=== PATIENT | female | born 1960 | race Caucasian/White ===

== ENCOUNTER 2023-03-23 12:02 | Emergency (ER) | payer BC, SELFPAY ==
[2023-03-23] VITALS (17 sets, daily range): BP systolic 156–204; BP diastolic 75–99; PULSE 68–80; RESP 12–28; TEMP 36.2; O2SAT 95–100
--- NOTE | ~2023-03-23 | XR_ITS ---
EXAMINATION: XR chest 2V DATE: 03/23/2023 13:16 INDICATION: Hypertension TECHNIQUE: PA and lateral views of the chest are obtained. COMPARISON: 12/14/2017 FINDINGS: The lungs are free of acute opacities. No pleural effusion or pneumothorax. The cardiomedia stinal silhouette is normal. There is moderate thoracic spondylosis. Surgical clips in the right uppe r quadrant are likely from prior cholecystectomy. IMPRESSION: 1. No acute cardiopulmonary abnormality. Reviewed, dictated and finalized at location B.
--- NOTE | 2023-03-23 12:10 | ECG_ITS ---
Measurements Intervals [place] Rate: 67 P: 5 AK: 144 QRS: 19 QRSD: 86 T: 29 QT: 399 QTc: 423 Interpretive Statements SINUS RHYTHM WITHIN NORMAL LIMITS NO PREVIOUS ECG AVAILABLE FOR COMPARISON Electronically Signed On 03-23-2023 17:06:13 CDT by Luan Reeves M.D.
[2023-03-23 12:47] LABS: Basophils Percent Auto 0.6 % (0.2-1.2); Eosinophils Absolute Auto 0.8 K/mm3 (0-0.3); Eosinophils Percent Auto 12.7 % (0-4.4); Hematocrit 36.7 % (37.0-47.0); Hemoglobin 12.3 g/dL (12.0-15.0); Immature Granulocyte Absolute 0.02 K/mm3 (0.00-0.031); Immature Granulocyte Percent A 0.3 % (0-0.5); Lymphocytes Absolute Auto 2.23 K/mm3 (0.9-3.2); Mean Corpuscular HGB Conc 33.5 g/dl (32-36); Mean Corpuscular Hemoglobin 29.5 pg (26-34); Mean Platelet Volume 9.5 fl (7.4-10.4); Monocytes Absolute Auto 0.5 K/mm3 (0.1-0.6); Neutrophils Absolute Auto 2.8 K/mm3 (1.3-6.7); Neutrophils Percent Auto 43.4 % (45.5-73.1); Platelet Count Result 258 k/mm3 (150-375); Red Blood Count 4.17 M/mm3 (4.2-5.4); Red Cell Distribution Width 12.4 % (11.5-14.5); White Blood Count 6.4 K/mm3 (4.5-10.0)
[2023-03-23 12:57] LABS: Alanine Aminotransferase 23 U/L (6-35); Albumin Level 4.6 g/dL (3.5-5.1); Alkaline Phosphatase 108 U/L (38-126); Anion Gap 10 mmol/L (8-16); Aspartate Amino Transferase 30 U/L (14-36); Bilirubin,Total 0.7 mg/dL (0.2-1.3); Blood Urea Nitrogen 15 mg/dL (7-17); Calcium 9.5 mg/dL (8.4-10.2); Carbon Dioxide 22 mmol/L (22-30); Chloride 104 mmol/L (98-107); Estimated CRCL calculation 83 ml/min; Estimated Glomerular Filt Rate > 60; Glucose 104 mg/dL (65-110); Lipase 73 U/L (23-300); Potassium 3.9 mmol/L (3.4-5.0); Sodium 136 mmol/L (137-145)
[2023-03-23 13:08] LABS: Troponin I < 0.012 ng/mL (0.000-0.034)
[2023-03-23 14:12] LABS: INR 0.9; Prothrombin Time 12.9 Seconds (11.1-14.7)
[2023-03-23 14:13] LABS: Partial Thromboplastin Time 30.3 SECONDS (22.3-36.8)
--- NOTE | 2023-03-23 14:47 | PC.NURSE ---
pt up to desk asking if she can leave. pt made aware of dept status. pt anxious. made aware that even though labs were drawn that she is waiting to see an edp.
--- NOTE | 2023-03-23 15:49 | ED.GENADULT ---
[facility] - General Adult General Chief complaint: Recheck/Abnormal Lab/Rx Stated complaint: high blood pressure Time Seen by Provider: 03/23/23 15:22 Source: patient Mode of arrival: ambulatory Limitations: no limitations History of Present Illness [facility] narrative: This is a 62-year-old female who presents to the ED with chief complaint of high blood pressure and chest pain beginning just prior prior to arrival. At the time I am able to see her she states that all of her symptoms have resolved. She states earlier today she had checked her blood pressure at [facility] because she was having a little bit of headache and saw that it was in the 200s over 80s. She states she then started to have a little bit of tingling in her hands and around her lips. She also reports some chest pain that was centrally located that radiated to the left. Denies any exertional component with the chest pain. Denies shortness of breath, LOC, vomiting. Again she states that it is completely resolved by the time that I talk to her. Denies vision changes, any current numbness or weakness. Denies leg swelling. Related Data Allergies Allergy/AdvReac Type Severity Reaction Status Date / Time No Known Allergies Allergy Verified 12/14/17 11:15 Review of Systems Review of Systems: All systems as dictated in [facility] Family History Family History (Updated 01/07/11 @ 14:32 by DOCTOR UNKNOWN) Other Family history of Parkinson's disease Hypertension Social History Social History Alcohol intake: current Exam Narrative: GENERAL: Well-appearing, well-nourished, and in no acute distress. HEAD: Normocephalic, atraumatic. EYES: PERRLA and EOMI. ENT: Nares clear, no rhinorrhea or epistaxis. Mucous membranes moist. Oropharynx without tonsillar hypertrophy exudate or other lesions. NECK: Supple. No adenopathy or masses. CHEST: No respiratory distress. Clear to auscultation. No wheezes rales or rhonchi HEART: Regular rate and rhythm. No murmur heard. Normal peripheral pulses. ABDOMEN: Soft, nontender, nondistended, normal active bowel sounds. MSK: Normal range of motion. No edema. SKIN: Warm, dry, no rash. NEURO: Alert and oriented x3. No focal deficits. PSYCH: Normal mood and affect. Course Vital Signs Vital signs: Vital Signs Temperature 97.2 F L 03/23/23 12:16 Pulse Rate 77 03/23/23 12:16 Respiratory Rate 18 03/23/23 12:16 Blood Pressure 156/86 H 03/23/23 12:16 Pulse Oximetry 99 03/23/23 12:16 Oxygen Delivery Room Air 03/23/23 12:16 Temperature 97.2 F L 03/23/23 12:16 Pulse Rate 75 03/23/23 17:16 Respiratory Rate 14 03/23/23 17:16 Blood Pressure 165/77 H 03/23/23 17:16 Pulse Oximetry 98 03/23/23 17:16 Oxygen Delivery Room Air 03/23/23 12:16 Medical Decision Making MDM Narrative Medical decision making narrative: This is a 62-year-old female who presents to the ED with chief complaint of hypertension, headache. She also had some chest pain but all of the symptoms have seemed to resolved. Vitals show elevated blood pressure but nonemergent hypertension. Otherwise vitals are intact. Exam is benign. ECG shows normal sinus rhythm with no acute ischemic findings. Serial troponins are negative. Lab work is grossly unremarkable. Chest x-ray is negative. Her neurologic exam is fully intact with no vision changes. No evidence of any emergent hypertension or end organ damage. She is comfortable going home and taking Tylenol for her headache. Presentation consistent with asymptomatic hypertension at this time. Heart score 3. I discussed with her that she should follow-up with her doctor regarding her elevated blood pressures. Strict return precautions were given. Pt will be discharged in stable condition. Return precautions given and supportive measures discussed. Pt is understanding and agreeable with plan for discharge and follow-up with PCP. Vital Signs Vital Signs: Vital Si
[2023-03-23 15:59] LABS: Troponin I < 0.012 ng/mL (0.000-0.034)
--- NOTE | 2023-03-23 16:33 | PC.NURSE ---
taken to CT at this time.
== END 2023-03-23 17:38 | disposition home or self-care (01) ==
PROVIDERS: Emergency Medicine; Emergency Provider Physician Assistant; PCP Internal Medicine
DX: I10 Essential (primary) hypertension (principal)
CPT/HCPCS: 36415; 71046; 80053; 83690; 84484; 85025; 85610; 85730; 93005; 99284

== ENCOUNTER 2024-12-27 19:15 | Emergency (ER) | payer BC, SELFPAY ==
--- NOTE | ~2024-12-27 | US_ITS ---
EXAMINATION: US pelvic complete DATE: 12/27/2024 23:58 INDICATION: right lower abd pain, r/o torsion TECHNIQUE: Multiple transabdominal sonographic images of the pelvis were obtained. COMPARISON: CT abdomen pelvis, same date. FINDINGS: Uterus: 9.5 x 3.5 x 5.5 cm. Endometrial complex measures 8 mm. Right Ovary: 4.6 x 2.0 x 2.7 cm. Vascular flow is present. No adnexal mass. Left Ovary: 3.1 x 2.6 x 2.7 cm. Vascular flow is present. No adnexal mass. There is no free fluid in the pelvis. IMPRESSION: Endometrial thickening to 8 mm. Recommend referral for endometrial sampling. No sonographic findings to suggest ovarian torsion. Reviewed, dictated and finalized at location K.
--- NOTE | ~2024-12-27 | CT_ITS ---
EXAMINATION: CT abdomen pelvis w con DATE: 12/27/2024 22:45 INDICATION: RLQ abd pain TECHNIQUE: Computed tomography (CT) of the abdomen and pelvis was performed with 100 mL Omnipaque-350 intravenous contrast. Automated exposure control and iterative reconstruction technique were employe d. The dose-length product was 714.24 mGy-cm. COMPARISON: 08/14/2011. FINDINGS: Lower thorax: Unremarkable Liver: Diffusely low-density parenchyma. Biliary/Gallbladder: Gallbladder is absent. No bile duct dilation. Pancreas: No mass or duct dilation. Spleen: Normal. Adrenals:No mass. Kidneys: No suspicious mass, obstructing stone, or hydronephrosis. Tiny left midpole AML. Subcentimet er lateral hypodensities, too small to characterize but most likely represent cysts. GI tract: Mild distal esophageal and gastric wall edema. Mild wall edema in the sigmoid. No small or large bowel dilation. Normal appendix. Mesentery/Peritoneum: No ascites, mass, or free air. Retroperitoneum: No mass. Pelvis: Mild bladder wall thickening in a partially distended urinary bladder. Normal uterus and bila teral ovaries. Prominent left pelvic veins, with small enhancing veins extending up the left ureter t o the renal pelvis, giving the appearance of urothelial enhancement. Soft Tissues: Soft tissues and body wall unremarkable. Bones: No acute osseous finding. IMPRESSION: Esophagitis/gastritis. Hepatic steatosis. Mild sigmoid wall edema, may reflect a component of colitis. Cystitis versus bladder wall thickening from incomplete distention. Correlate with urinalysis. Prominent left pelvic veins, as can be seen with pelvic congestion. Correlate clinically for persiste nt dull pelvic pain lasting > 6 months, dysmenorrhea, dyspareunia, postcoital ache, and urinary sympt oms. Reviewed, dictated and finalized at location K. IMPRESSION: Esophagitis/gastritis. Hepatic steatosis. Mild sigmoid wall edema, may reflect a component of colitis. Cystitis versus bladder wall thickening from incomplete distention. Correlate w ith urinalysis. Prominent left pelvic veins, as can be seen with pelvic congestion. Correlate c linically for persistent dull pelvic pain lasting > 6 months, dysmenorrhea, dys pareunia, postcoital ache, and urinary symptoms.
--- OUTSIDE RECORDS SUMMARY | 2024-12-27 19:17 | XMS_ITS | Patient Health Record ---
Author Organization [facility] Address [address] [place], [place] [id number] Care Team Providers Care Butcher Or Smallgoods Maker Name Role Phone ROSY SALES Unavailable [phone] Jinny Beasley Unavailable Unavailable Allergies No Known Allergies Reason For Referral No Information Medications Medication SIG (Take, Route, Frequency, Duration) Notes Start Date End Date Status Medrol Dosepak ORAL Medrol DosepakOr iginal MedicationMedrol Dosepak *Reorder from [facility] for eRx and Interaction Alerts* 12/07/2020 Active Procedures Procedure Date Ordered Date Performed Result Body Sit e PHYSICAL THERAPY 02/01/2024 02/02/2024 SEE PHYSICAL THERAP Y REPORT Encounters Encounter Location Date Provider Diagnosis [facility] [address] [place], [place] [id number] 03/24/2024 ROSY SALES 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 Suggest Graston technique Plan Of Treatment No Information Insurance Providers Payer Name Payer Address Payer Phone Subscriber Number Group Number Insured Name Patient Relationship to Insured Coverage Start Date Coverage End Date [facility] ([facility]) ATTN CLAIMS [address] [place] [address] [id number] STACEY BETHEA Self - patient is the insured
--- OUTSIDE RECORDS SUMMARY | 2024-12-27 19:17 | XMS_ITS | Encounter Summary ---
Author Organization [facility] Address [address] [place] [address] Care Team Providers Care Distributor Operator Name Role Phone Yanet Westfall MD Unavailable [phone] Alma Francisco MD Unavailable [phone] Jacquelin Holden MD Unavailable [phone] Horace Zapien MD Unavailable [phone] Jinny Sam MD Primary Care Provider [phone] Encounter Details Date Type Department Care Team (Latest Contact Info) Description 11/27/2024 Results Follow-Up [facility] Primary Care [address] [place] [phone] Jinny Sam MD [address] [place] [phone] CBC with auto differential, Comprehensive metabolic panel, Lipid panel, Additional followed-up results: 5 Social History Tobacco Use Types Packs/Day Years Used Date Smoking Tobacco: Never Smokeless Tobacco: Never Alcohol Use Standard Drinks/Week Comments Yes 0 (1 standard drink = 0.6 oz pur e alcohol) socially AUDIT-C Answer Date Recorded Q1: How often do you have a drink containing alc ohol? Monthly or less 08/12/2024 Q2: How many drinks containi ng alcohol do you have on a typical day when you are drinking? 1 or 2 08/12/2024 Q3: How often do you have si x or more drinks on one occasion? Never 08/12/2024 PHQ-2 Answer Date Recorded PHQ-2 Total Score (If total score is 3 or more points, staff should administer the PHQ-9) 0 06/08/2024 Personal Safety Answer Date Recorded Have you ever been in or are you currently in a harmful physical or emotional relationship or is someone making you feel afraid or unsafe? 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 documented in this encounter Plan of Treatment Not on file documented as of this encounter Visit Diagnoses Not on filedocumented in this encounter Care Teams Distributor Operator Relationship Specialty Start Date End Date Jinny Sam MD [address] [place] [phone] PCP - General Internal Medicine 11/16/19 Yanet Westfall MD Consulting Physician Pulmonary Disease 04/18/19 Alma Francisco MD [address] [facility] [address] [place] [address] Referring Physician Cardiology 04/18/19 Jacquelin Holden MD [facility] [address] [place] [id number] Surgeon Surgical Oncology 04/18/19 Horace Zapien MD [address] [place] [address] Referring Physician Dermatology 04/18/19 documented as of this encounter
--- OUTSIDE RECORDS SUMMARY | 2024-12-27 19:17 | XMS_ITS | Clinical Summary ---
Author Organization [facility] Address [address] [place] [id number] Care Team Providers Care Facing End Trimmer Name Role Phone Yanet Westfall MD Unavailable [phone] Alma Francisco MD Unavailable [phone] Jacquelin Holden MD Unavailable [phone] Horace Zapien MD Unavailable [phone] Jinny Sam MD Primary Care Provider [phone] Allergies Active Allergy Reactions Criticality Noted Date Comments Cat Dander Other (See comments) Low 06/03/2023 House Dust Other (See comments) Low 06/03/2023 Mold Other (See comments) Low 06/03/2023 Ragweed Pollen Eye irritation,Hives,Itching,Rash,Redness, Sneezing,Swelling Medium Medications multivitamin tablet Take 1 tablet by mouth daily 12/03/19 19 Active hydroCHLOROthi azide (HYDRODIURIL) 25 mg tablet 04/09/20 23 Active benzonatate (TESSALON) 200 mg capsuleIndicat ions:Acute lower respiratory infection Take 1 capsule (200 mg total) by mouth 3 (three) times a day as needed for cough keep tessalon out of reach of children, especially children under the age of 10, due to possible serious risk such as if ingested by children under the age of 10. 30 capsule 07/24/20 24 Active SEMAGLUTIDE SUBQ Inject under the skin Active mometasone (ELOCON) 0.1 % cream Apply topically daily Apply topically daily to hand 45 g 1 09/16/19 25 Active irbesartan (AVAPRO) 150 mg tablet TAKE 2 TABLETS BY MOUTH DAILY 180 tablet 1 09/21/19 25 Active buPROPion XL (WELLBUTRIN XL) 150 mg 24 hr tabletIndicati ons:Anxiety with depression TAKE 1 TABLET(150 MG) BY MOUTH EVERY MORNING 30 tablet 3 12/09/19 25 Active metFORMIN (GLUCOPHAGE) 500 mg tabletIndicati ons:Abnormal glucose,Class 1 obesity due to excess calories with serious comorbidity and body mass index (BMI) of 31.0 to 31.9 in adult Take 1 tablet (500 mg total) by mouth 2 (two) times a day with meals 180 tablet 1 12/13/19 25 Active rosuvastatin (CRESTOR) 5 mg tablet TAKE 1 TABLET(5 MG) BY MOUTH DAILY 90 tablet 3 10/29/19 24 025 Discontinued(No longer taking - Do not display on AVS) metFORMIN (GLUCOPHAGE) 500 mg tabletIndicati ons:Abnormal glucose,Class 1 obesity due to excess calories with serious comorbidity and body mass index (BMI) of 31.0 to 31.9 in adult TAKE 1 TABLET(500 MG) BY MOUTH TWICE DAILY WITH MEALS 180 tablet 1 03/25/20 24 025 Discontinued(Re order) buPROPion XL (WELLBUTRIN XL) 150 mg 24 hr tabletIndicati ons:Smoking Cessation Take 1 tablet (150 mg total) by mouth every morning 30 tablet 1 09/16/19 25 025 Discontinued Active Problems Problem Noted Date Diagnosed Date Myalgia 12/07/2024 Assessment & Plan (12/07/2024 4:27 PM CDT): New and worsening Prob from statin use Change rosuvastatin to atorvastatin but need to make sure the LFTs return to normal Stop rosuvastatin see if muscle aches resolve Transaminitis 12/07/2024 Assessment & Plan (12/07/2024 4:41 PM CDT): New problem Doubt from rosuvastatin has been on this for quite a long time Recent stomach discomfort ff chicken salad sandwich and had immed pain, then had labs morning after and lfts were up Should resolve if viral of food poisoning related Limit etoh Last inj of semiglutide was october 2024 LFTs in 4 wks Bladder prolapse, female, acquired 12/07/2024 Assessment & Plan (12/07/2024 4:58 PM CDT): Seen by clinical review specialist at [place] told she has grade 1 prolapse of the bladder. She is struggling with urinary symptoms. Patient wanting to see a urogynecologist. Refer to Dr. Montoya Screening for colon cancer 07/13/2024 Anxiety with depression 06/08/2024 Overview (12/07/2024): Wellbutrin therapy: To cut down food noise and cravings and reduce irritability/anxiety Assessment & Plan (12/07/2024 4:29 PM CDT): Wellbutrin therapy: To cut down food noise and cravings and reduce irritability/anxiety Assessment & Plan (06/08/2024 4:02 PM CDT): Restart wellbutrin therapy, start at 150 mg and in 1 month call to increase to 300 mg Knee pain, bilateral 10/23/2023 Assessment & Plan (03/11/2024 2:58 PM CDT): Ongoing. Limits activity options. She is encouraged to participate in exercises that are low impact to reduce knee pain. 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 Causes pain in bilateral heels. Use supportive shoes when active. Participate in low-impact activities. Assessment & Plan (10/23/2023 9:30 AM CDT): Rebecca heel - surgically corrected, 06/12/2023, Dr Salima Stein heel - not surgically corrected, affects gait and in pain Affecting gait, knees and back Treatment-emergent central sleep apnea Assessment & Plan (03/10/2024 4:00 PM CDT): Due to continued symptoms, the patient will continue with auto SV BiPAP therapy. I have ordered a mask and filters. [facility] Assessment & Plan (04/07/2023 1:30 PM CDT): The patient is reluctant to use the [employer] auto SV BiPAP unit because she has seen dust particles in the humidifier. She has not received a replacement unit and she did register with [employer] in 2020. Her current unit is 4 years old. I did ask her to contact her private insurance company to see if they would be willing to pay for a new [employer] auto SV BiPAP unit. I also requested that she contact [employer] again and see when she might receive the new [employer] auto SV BiPAP unit. She will follow-up with me in 3 months. Weight loss counseling, encounter for 01/15/2023 Overview (12/07/2024): 12/2022 wt 200#, started wegovy 01/14/2023 wt 192#, on wevogy 0.25 mg weekly, increase to 0.5 mg K Gloria rx semiglutide compound in 07/2024 Assessment & Plan (01/15/2023 11:48 AM CDT): Doing well on wegovy Cont inc dose of rx wegovy monthly Cont to improve on diet and lifestyle changes Make good healthy food choices Start to exercise regularly Rosacea 01/09/2022 Assessment & Plan (01/09/2022 3:35 PM CDT): Cheeks and around eyes Trial metrogel and cerave moisturizing cream for rosacea Has appt March [address] Zapien Annual physical exam 06/13/2020 Assessment & Plan (12/07/2024 4:20 PM CDT): covid bivalent booster due Colonoscopy due, schedule Reviewed previous labs and diagnostic test results. Chronic medical problems evaluated and management plans discussed with the patient. Prescription medications, supplements, vitamins and immunizations reviewed. Wear seatbelts. Use sunscreen. Discussed healthy diet and disease prevention. Recommend moving towards a plant based diet. Discussed importance of scheduling recommended screening tests. Discussed importance of regular physical examinations for health maintenance. Assessment & Plan (10/23/2023 8:58 AM CDT): covid bivalent booster due Colonoscopy due, schedule Reviewed previous labs and diagnostic test results. Chronic medical problems evaluated and management plans discussed with the patient. Prescription medications, supplements, vitamins and immunizations reviewed. Wear seatbelts. Use sunscreen. Discussed healthy diet and disease prevention. Recommend moving towards a plant based diet. Discussed importance of scheduling recommended screening tests. Discussed importance of regular physical examinations for health maintenance. Assessment & Plan (09/30/2022 7:54 AM SOCIAL MEDIA DEVELOPER): covid bivalent booster due Colonoscopy due, schedule Reviewed previous labs and diagnostic test results. Chronic medical problems evaluated and management plans discussed with the patient. Prescription medications, supplements, vitamins and immunizations reviewed. Wear seatbelts. Use sunscreen. Discussed healthy diet and disease prevention. Recommend moving towards a plant based diet. Discussed importance of scheduling recommended screening tests. Discussed importance of regular physical examinations for health maintenance. Discussed importance of a living will, advanced directives and establishing or updating healthcare power of state's attorney document and providing our office with a copy. Assessment & Plan (07/10/2021 1:09 PM SOCIAL MEDIA DEVELOPER): Reviewed previous labs and diagnostic test results. Chronic medical problems evaluated and management plans discussed with the patient. Prescription medications, supplements, vitamins and immunizations reviewed. Wear seatbelts. Use sunscreen. Discussed healthy diet and disease prevention. Recommend moving towards a plant based diet. Discussed importance of scheduling recommended screening tests. Discussed importance of regular physical examinations for health maintenance. Assessment & Plan (06/13/2020 3:04 PM SOCIAL MEDIA DEVELOPER): Wear sunscreen with SPF over 50 while outdoors. Wear sun protective head wear and clothing if planning to stay outdoors exposed to the direct sunlight for extended hours. Wear seatbelts while in a vehicle. Do not TEXT and DRIVE Do not DRINK and DRIVE. Drink responsibly Follow a heart healthy diet and lifestyle. Consume 5-7 servings of fruits and vegetables a day.. Such as the Mediterranean Diet. Maintain/attain normal body weight. Exercise regularly, minimum 20 mins 3 days a week to reduce cardiovascular healthy. Maintain good sleep schedule and sleep habits I recommend that all patients follow a diet that is high in fruits and vegetables and low in processed foods such as sugar and foods that are made with white flour. I recommend using beneficial fats such as olive oil, nuts, seeds and berries and avoiding saturated animal fats. Please stay physically active to the extent that you are physically able to. Test results: if you have not received communication about test results within 7 days of the test being performed, please contact the office. I strongly encourage [employer] sign ups. It can facilitate communication flow. Please contact the office for instructions on signing up. Consider getting Shingrix (shingles vaccine). This is a 2-shot series with each injection given 2-6 months apart. You can obtain the vaccine at most major pharmacies without a prescription Class 1 obesity due to exces s calories with serious comorbidity and body mass index (BMI) of 30.0 to 30.9 in adult 06/13/2020 Overview (12/07/2024): 203 # 04/2024 191# 07/2024 187# 08/2023 197# 04. Assessment & Plan (12/07/2024 4:16 PM CDT): Improving Cont to work on wt loss Exercise once is able to for wt loss Assessment & Plan (06/08/2024 3:55 PM CDT): Improving Cont to work on wt loss Exercise once is able to for wt loss Assessment & Plan (03/11/2024 2:56 PM CDT): Work on attempts to lose weight about 1 lb a week. Join a weight loss program if necessary. Try to reach for BMI under 30. Exercise regularly, Limit carbs and sugars. Control portion intake. Consume 6-8 8oz glasses of water daily. We discussed medication options at length. Her insurance does not cover GLP 1 injectables. She does not have interest in phentermine due to high blood pressure. We will start Wellbutrin to help reduce food cravings and support activity efforts. Assessment & Plan (10/23/2023 9:15 AM CDT): Work on wt loss Exercise once is able to for wt loss Assessment & Plan (06/03/2023 5:02 PM CDT): Work on wt loss Exercise once is able to for wt loss Assessment & Plan (04/07/2023 4:07 PM CDT): Work on wt loss Walk regularly, exercise with weights Try to lose about 20 lbs Assessment & Plan (01/15/2023 11:50 AM CDT): Consider wt loss jose to assist with wt loss Exercise regularly Increase activity to burn calories Assessment & Plan (09/30/2022 3:34 PM SOCIAL MEDIA DEVELOPER): Work on attempts to lose weight about 1 lb a week. Join a wt loss program if necessary. Try to reach for BMI under 30. Exercise regularly, Limit carbs and sugars. Control portion intake. Consume 6-8 8oz glasses of water daily. BMI Follow-up includes: nutrition counseling, exercise counseling and education provided. Assessment & Plan (05/27/2022 8:32 AM CDT): Agree with exercise regimen and plans to tr a wt loss program thru [employer] exercise Eat smaller portions Did not tolerate metformin, diarrhea but did not take too long Assessment & Plan (01/09/2022 3:29 PM CDT): Goal wt 166 lbs Try to get to 184 lbs first to get BMI under 30 Start exercising regularly Start metformin due to pre DM and to aid with wt loss Assessment & Plan (07/10/2021 1:11 PM SOCIAL MEDIA DEVELOPER): Work on wt loss Exercise 4-5 d a week for 45-60 mins a day to lose weight, burn calories No sugar diet Assessment & Plan (02/13/2021 3:56 PM CDT): Patient to call insurance plan and inquire if [employer] or [employer] are covered for weight loss for BMI 31.14, HTN, Pre DM, central sleep apnea Assessment & Plan (06/13/2020 3:36 PM SOCIAL MEDIA DEVELOPER): Work on wt loss Exercise regularly Lose about 40 lbs LPRD (laryngopharyngeal reflux disease) 06/13/20 20 Overview (06/13/2020): Dr Maharaj ENT On rx prilosec 40 mg bid Assessment & Plan (02/13/2021 3:44 PM CDT): No longer on prilosec 40mg 2x a day, cont under Carol Ann Takes tums prn since episodes are sporadic Avoid menthol cough gtts Avoid foods that can cause more reflux Assessment & Plan (06/13/2020 3:30 PM SOCIAL MEDIA DEVELOPER): Cont on prilosec 40mg 2x a day, cont under Carol Ann See if it reduces her cough Avoid menthol cough gtts Avoid foods that can cause more reflux Abnormal glucose 06/13/2020 Overview (12/07/2024): Taking metformin therapy 02/2022 - 5.8% 05/2022 - 5.7% 09/2022 - 5.8% 03/2023 - 5.7% 05/2024 - 6.0%, cannot exercise 11/2024 - 5.5%, some exercising, cut portions by 50% Assessment & Plan (12/07/2024 4:27 PM CDT): 05/2024 - 6.0%, could not exercise 11/2024 - 5.5%, some exercising, cut portions by 50% Cont to avoid sugar in diet Try to exercise more Cont to cut down on food portions Avoid etoh Assessment & Plan (06/08/2024 3:59 PM CDT): Cont rx metformin therapy 500 mg once daily to improve sugar metabolism, prevent DM Has to work on diet and exercise regimen Do water exercises Last A1c was 5.7, now up to 6% Assessment & Plan (10/23/2023 9:14 AM CDT): Is taking metformin therapy Has to work on diet and exercise regimen Do water exercises Last A1c was 5.7 Assessment & Plan (09/30/2022 3:51 PM SOCIAL MEDIA DEVELOPER): Better, tolerating metformin Cont same one nightly of metformin Ff low sugar diet Patient requested natural products that might help: Chromium piconolate supplement lowers BS Bittermelon lowers blood sugar (tea version) Lecithin (b type vitamin) lowers cholesterol Cont statin low dose Assessment & Plan (05/27/2022 8:37 AM CDT): Did not tolerate metformin, diarrhea but took intermittently and dd not take for long to see if SE would wear off 02/2022 - 5.8% 05/2022 - 5.7% Re try, once daily for 3 - 4 wks, do not interrupt use, if diarrhea persists over 4 wks continuously then stop, if tolerates, cont to take once daily with main meal Assessment & Plan (01/09/2022 3:20 PM CDT): a1c 5.8 At risk for DM Start metformin 500 mg bid with breakfast and dinner Ff diabetic diet Assessment & Plan (07/10/2021 1:12 PM SOCIAL MEDIA DEVELOPER): Remains at risk for DM BMI over 30 Work on wt loss Exercise for wt loss FBS 104, a1 5.7 Assessment & Plan (02/13/2021 3:57 PM CDT): At risk for DM Consider wt loss meds williams salma and or karlo Follow low carbohydrate high-protein diet. Avoid eating sugars. Patient should read labels and make sure there are no ingredients that contain added sugar, or fructose, sucrose or anything ends in OSE. Exercise regularly, limit food portions. Follow proper serving sizes. Work on add'l weight loss. Will Monitor a1c on a 3-6mos basis. Assessment & Plan (06/13/2020 6:16 PM SOCIAL MEDIA DEVELOPER): At risk for DM a1c today is normal at 5.5. Patient advised to decrease her carbohydrate intake and follow a no sugar diet. Hyperlipidemia 11/12/2018 Assessment & Plan (12/07/2024 4:41 PM CDT): Worsening lately Was Improving initially on rosuvastatin and suddenly chol is high again LFTs are up, hold rosuvastatin, until LFT normal Will call in 4 wks once LFTs back to decide if ok to try atorvastatin instead, she may tolerate Low chol diet Assessment & Plan (06/08/2024 4:10 PM CDT): Improving on rosuvastatin Cont statin low dose Low chol diet Assessment & Plan (10/23/2023 8:59 AM CDT): Improving Cont statin low dose Low chol diet Assessment & Plan (04/07/2023 4:04 PM CDT): Improving Cont statin low dose Low chol diet Assessment & Plan (09/30/2022 3:52 PM SOCIAL MEDIA DEVELOPER): Improving Cont statin low dose Low chol diet Assessment & Plan (01/09/2022 3:21 PM CDT): Cont low chol diet Cont statin therapy Assessment & Plan (07/10/2021 1:13 PM SOCIAL MEDIA DEVELOPER): Numbers could be better, LDL goal under 100 Improve diet and lifestyle Assessment & Plan (02/13/2021 3:42 PM CDT): Follow step 1 low cholesterol diet. Report if having problems with daily nausea or extreme muscle aches and weaknesses throughout the body if you have been prescribed a statin medication. Monitor lipid levels on a regular basis as discussed and planned. Recommend to continue with current medication. Controlled on current regimen. Assessment & Plan (06/13/2020 3:44 PM SOCIAL MEDIA DEVELOPER): Follow low chol diet Cont crestor therapy Stable The 10-year ASCVD risk score (Jade PAULINO Jr., et al., 2013) is: 4% Values used to calculate the score: Age: 59 years Sex: Female Is Non- : No Diabetic: No Tobacco smoker: No Systolic Blood Pressure: 128 mmHg Is BP treated: Yes HDL Cholesterol: 49 mg/dL Total Cholesterol: 182 mg/dL Assessment & Plan (04/18/2019 2:56 PM CDT): Lipids, cpk soon Patient is taking the medications as prescribed and is tolerating well. Patient is following a low-cholesterol heart healthy diet. Tries to exercise on a regular basis. Denies myalgias or nausea. Does get routine blood work done. Liver panels have been in normal range. Essential hypertension 05/13/2017 Overview (07/10/2021): ECHO 07/01/2021, normal Dr Francisco The left ventricular systolic function is normal. Estimated left ventricular ejection fraction is 65-70%. Left ventricular diastolic function is normal. Wall motion appears normal in all segments. No significant valvular abnormality. Assessment & Plan (12/07/2024 4:21 PM CDT): Stable Cont same arb dose and hctz Cont wt loss attempts Exercise regularly Assessment & Plan (06/08/2024 3:54 PM CDT): Stable Cont same arb dose and hctz Cont wt loss attempts Exercise regularly Assessment & Plan (10/23/2023 8:59 AM CDT): Stable Cont same arb dose and hctz Cont wt loss attempts Exercise regularly Assessment & Plan (04/07/2023 4:04 PM CDT): Stable Cont same arb dose and hctz Cont wt loss attempts Exercise regularly Assessment & Plan (09/30/2022 3:52 PM SOCIAL MEDIA DEVELOPER): Stable Cont same arb dose and hctz Cont wt loss exercise Assessment & Plan (01/09/2022 3:21 PM CDT): Ff low sodium diet Exercise in the water or ride a stationary bike Assessment & Plan (07/10/2021 3:35 PM SOCIAL MEDIA DEVELOPER): ECHO 2020, normal Dr Francisco bp controlled Ff low sodium diet Work out regularly, for cv health Assessment & Plan (02/13/2021 3:42 PM CDT): Follow low sodium DASH Diet. Exercise regularly for CV health and weight loss. Achieve or Maintain normal BMI/Weight. Take medications as prescribed. Report if having problems with the medication or if develops Chest pains. Monitor BP occly and record. Report if BP consistently over 160/90 or under 90/60 and dizzy and LH. BP is controlled and stable. Assessment & Plan (06/13/2020 3:41 PM SOCIAL MEDIA DEVELOPER): Controlled Cont same regimen Assessment & Plan (04/18/2020 9:42 AM CDT): Uncontrolled today- advised she check 2-3 numbers over the n ext week and call them in or mychart to me. Seeing Dr. sam in about 1 month Assessment & Plan (11/16/2019 11:38 AM CDT): Currently not controlled on irbesartan and hctz Flushing spells and Has likely related to high BP Cont to use bipap nightly Ff low sodium diet Add norvasc 5mg daily for added bp control, take at pm BP readings should improve in 48hrs, patient to report back on Thursday am with BP readings Assessment & Plan (04/18/2019 2:50 PM CDT): CMP soon Follow low sodium DASH Diet. Exercise regularly for CV health and weight loss. Achieve or Maintain normal BMI/Weight. Take medications as prescribed. Report if having porblems with the medication or if develops Chest pains. Monitor BP occly and record. Report if BP consistently over 160/90 or under 90/60 and dizzy and LH. BP is controlled and stable. Eczematous dermatitis of eyelid 06/25/2011 Resolved Problems Problem Noted Date Diagnosed Date Resolved Date Pre-operative clearance 06/03/202310/08 Assessment & Plan (06/03/2023 4:57 PM CDT): Medically cleared for surgery as planned on 06/12/2023 Most recent EKG 03/23/2023 at [facility] in chart Do not take any meds morning of surgery Avoid mvi 7 d before surgery Do not take advil/ibuprofen/motrin/aspirin within 7 days of surgery Acute viral syndrome 11/16/2019 020 Assessment & Plan (04/18/2020 8:55 AM CDT): Considering recent trip to [facility], need to r/o covid Suggest rest, tylenol and rx for tessalon perles for symptomatic management Assessment & Plan (11/16/2019 11:31 AM CDT): Remain in quarantine. Watch for signs of SOB, call if any changes, cough, worsening of symptoms Good hand washing routine. Rest, fluids, hydrate. Tylenol or Advil prn fever and aches Use a humidifier, recommended steam inhalation, hot showers and vapor rub. Saline/Salt water gargles, saline nose drops prn. Watch for worsening symptoms, i.e.increasing fever, productive cough, lethargy, rash etc. Call office, [facility] covid call center or go to the ER should symptoms worsen, such as worsening shortness of breath with cough with high fever Pt verbalizes understanding and all questions have been answered. Testing for CoVid 19 at this time would likely not change protocol, isolation and quarantine is recommended Complex sleep apnea syndrome 04/18/2019 03/10/2024 Overview (09/03/2019): ONELIA/COMPLEX SLEEP APNEA SYNDROME/EMERGENT CENTRAL SLEEP APNEA On Auto-SV BiPap, Dr Westfall is sleep specialist Assessment & Plan (06/13/2020 3:25 PM SOCIAL MEDIA DEVELOPER): Compliant with BiPap Stable Dr Westfall Assessment & Plan (04/18/2019 2:43 PM CDT): BP is controlled since on BiPap. Continue under Dr Westfall. Abnormal weight gain 04/18/2019 024 Assessment & Plan (04/18/2019 2:49 PM CDT): Work on attempts to lose weight about 2 lbs a month. Join a wt loss program if necessary. Try to reach for BMI under 26. Exercise regularly, Limit carbs and sugars in diet. Control portion intake. Consume 6-8 8oz glasses of water daily. Check tsh and a1c soon Herpes zoster without complication 11/15/2018 06/13/2020 Assessment & Plan (11/15/2018 8:42 AM CDT): Valtrex therapy, Gabapentin therapy Rest and fluids Do not go to work, bharat is . Caladryl topical Keep area clean and dry Call if develop signs of infection. Stop the augmentin antibiotic. Cont the advil and alternate with tylenol prn. Off work for remainder of the week. Off work slip needed. Dyspnea on exertion 11/12/2018 06/08/20 24 Acute non-recurrent maxillary sinusitis 11/12/2018 04/18/2019 Assessment & Plan (11/12/2018 9:30 AM CDT): Use OTC flonase, antihistamines, and mucinex for symptomatic relief. Tylenol or OTC NSAIDs for fever, body aches etc. Actions and side effects of meds discussed. Take meds as directed. Good hand washing routine. Increase fluids. Use a humidifier, recommended steam inhalation, hot showers and vapor rub. Saline/Salt water gargles, saline nose drops prn. Watch for worsening symptoms, i.e.increasing fever, productive cough, MCCANN, ST, lethargy, rash etc. RTC prn or if symptoms worsen/change or don't improve in 3-4 days. Eustachian tube dysfunction, right 11/12/2018 04/18/2019 Assessment & Plan (11/12/2018 9:34 AM CDT): OTC antihistamines Use afrin x2 days then triral flonase Keep appointment with ENT Contact dermatitis and other eczema 12/25/2015 04/18/2019 Encounters Date Type Department Care Team Description 12/23/2024 Telephone [facility] Obstetrics and Gynecology [address] [place] [address] Rahel Feldman Scheduling Appointments 12/07/2024 3:30 PM CDT Office Visit [facility] [address] [place] [phone] Jinny Sam MD Annual physical exam (Primary Dx); Class 1 obesity due to excess calories with serious comorbidity and body mass index (BMI) of 30.0 to 30.9 in adult; Abnormal glucose; Essential hypertension; Myalgia; Pure hypercholesterolemia; Anxiety with depression; Transaminitis; Bladder prolapse, female, acquired 11/28/2024 Results Follow-Up [address] [phone] Jinny Sam MD Urinalysis reflex to microscopic and culture Urine, clean voided 11/27/2024 Results Follow-Up [address] [phone] Jinny Sam MD CBC with auto differential, Comprehensive metabolic panel, Lipid panel, Additional followed-up results: 5 11/23/2024 3:25 PM CDT Lab [facility] [address] [place] [address] Urethral pain 11/14/[address] [phone] Jinny Sam MD Exposed to Influenza A from Last 3 Months Immunizations Immunization Administration Dates Next Due Influenza, Quadrivalent, Spl it, Preservative Free, Intramuscular 06/03/2023,05/27/2022,07/10/2021,06/13 Influenza, Trivalent, Preser vative Free, Intramuscular 06/08/2024 Influenza, Unspecified 05/27/2022,07/10/2021,11/2019 Pneumococcal Conjugate Pcv20 06/08/2024 TD Preservative Free 03/15/2010 Td, Adsorbed, Preservative F ree, Adult Use, Lf Unspecified 03/15/2010 Tdap 03/15/2010 ZOSTER Recombinant 09/28/2020,06/29/2020 Surgical History Surgery Date Site/Laterality Comments CHOLECYSTECTOMY 08/10/1993 - 08/09/1994 FUNCTIONAL ENDOSCOPIC SINUS SURGERY FOOT SURGERY Left Medical History Medical History Date Comments Hypertension Depression Acute non-recurrent maxillary sinusitis 11/13/19 Eustachian tube dysfunction, right 11/12/2018 Contact dermatitis and other eczema 12/25/2015 Anxiety Allergic rhinitis Sleep apnea Herpes zoster without complication 11/15/2018 GERD (gastroesophageal reflux disease) LPRD PONV (postoperative nausea a nd vomiting) Anxiety with depression 06/08/2024 Wellbutr in therapy: To cut down food noise and cravings and reduce irritability/anxiety Hyperlipidemia 11/12/2018 Essential hypertension 05/13/2017 ECHO 06/11, normal Dr Francisco The left ventricular systolic function is normal. Estimated left ventricular ejection fraction is 65-70%. Left ventricular diastolic function is normal. Wall motion appears normal in all segments. No significant valvular abnormality. Family History Medical History Relation Name Comments Hypertension Father HARPAL Parkinsonism Father HARPAL Stroke Father HARPAL Throat cancer Father's Brother 1 Brain cancer Father's Brother 2 Ovarian cancer Father's Sister Heart disease Mother EYAL stented pereyra ganga Hyperlipidemia Mother EYAL Hyperlipidemia Sister 1 Marsha Hypertension Sister 2 Lana Relation Name Status Comments Father HARPAL Father's Brother 1 Father's Brother 2 Father's Sister Mother EYAL Alive Sister 1 Marsha Alive Sister 2 Lana Alive Social History Tobacco Use Types Packs/Day Years Used Date Smoking Tobacco: Never Smokeless Tobacco: Never Tobacco Cessation:Counseling Given: Not Answered Alcohol Use Standard Drinks/Week Comments Yes 0 (1 standard drink = 0.6 oz pur e alcohol) socially AUDIT-C Answer Date Recorded Q1: How often do you have a drink containing alc ohol? Monthly or less 12/07/2024 Q2: How many drinks containi ng alcohol do you have on a typical day when you are drinking? 1 or 2 12/07/2024 Q3: How often do you have si x or more drinks on one occasion? Never 12/07/2024 PHQ-2 Answer Date Recorded PHQ-2 Total Score (If total score is 3 or more points, staff should administer the PHQ-9) 0 12/07/2024 PHQ-9 Answer Date Recorded PHQ-9 Total Score 0 12/07/2024 Personal Safety Answer Date Recorded Have you ever been in or are you currently in a harmful physical or emotional relationship or is someone making you feel afraid or unsafe? 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 Not on file Not on file Not on file [employer] Not on file Not on file Not on file Obstetrics History Last Filed Vital Signs Vital Sign Reading Time Taken Comments Blood Pressure 132/82 12/07/2024 3:36 PM CDT Pulse 74 12/07/2024 3:36 PM CDT Temperature 36.2 C (97.2 F) 12/07/2024 3:36 PM CDT Respiratory Rate 18 08/12/2024 12:5 0 PM SOCIAL MEDIA DEVELOPER Oxygen Saturation 95% 12/07/2024 3:36 PM CDT Inhaled Oxygen Concentration - - Weight 89.7 kg (197 lb 12.8 oz) 12/07/2024 3:36 PM CDT Height 170.2 cm (5' 7 ) 12/07/2024 3:36 PM CDT Body Mass Index 30.98 12/07/2024 3:36 PM CDT Plan of Treatment Health Maintenance Due Date Last Done Comments Hepatitis B Screening 1978 Cervical Cancer Screening 11/12/2023 11/11/2018, 08/2018 Covid-19 Vaccine (4 - 2023-2 5 season) 2024 06/19/2022, 07/23/2021, 10/16/2020 Breast Cancer Screening-Mammogram 02/25/2025 02/26/2024, 12/01/2022, 07/12/2021, Additional history exists Depression Screening 12/07/2025 12/07/2024, 12/07/2024, 06/08/2024, Additional history exists Regular Well Visit/Exam 18-64 12/07/2025, 10/23/2023, 09/30/2022, Additional history exists Colon Cancer Screening-Colonoscopy 08/12/2034 08/12/2024, 04/01/2012 DTaP/Tdap/Td Vaccine Discontinued 03/15/2010, 03/15/2010, 03/15/2010 Hepatitis C Screening Completed 05/26/2017 Zoster Vaccine Completed 09/28/2020, 06/29/2020 Influenza Vaccine Completed 06/08/2024, , 05/27/2022, Additional history exists Pneumococcal vaccine <65 Completed 06/08/2024 Colon Cancer Screening-CT Colonography Discontinued 08/12/2024, 04/01/2012 Colon Cancer Screening-DNA Stool Discontinued 08/12/19, 04/01/2012 Colon Cancer Screening-FIT Discontinued 08/12/2024, Colon Cancer Screening-Sigmoidoscopy Discontinued 08/12/2024, 04/01/2012 Medical Devices Implanted Type Area Evaporative Cooler Installer Device Identifier Shelf Expiration Date Model / Serial / Lot Left Foot Surgery ([place]) Left: Foot Procedures Procedure Name Priority Date/Time Associated Diagnosis Comments ALBUMIN CREATININE RATIO, URINE Routine 11/25/2024 8:38 AM CDT Essential hypertension Pure hypercholesterole nikolas Abnormal glucose HEMOGLOBIN A1C Routine 11/25/2024 8:38 AM CDT Essential hypertension Pure hypercholesterole nikolas Abnormal glucose THYROID FUNCTION CASCADE Routine 11/25/2024 8:38 AM CDT Essential hypertension Pure hypercholesterole nikolas Abnormal glucose LIPID PANEL Routine 11/25/2024 8:38 AM CDT Essential hypertension Pure hypercholesterole nikolas Abnormal glucose COMPREHENSIVE METABOLIC PANEL Routine 11/25/2024 8:38 AM CDT Essential hypertension Pure hypercholesterole nikolas Abnormal glucose CBC WITH AUTO DIFFERENTIAL Routine 11/25/2024 8:38 AM CDT Essential hypertension Pure hypercholesterole nikolas Abnormal glucose REFLEXIVE URINE CULTURE Routine 11/25/2024 8:38 AM CDT URINALYSIS AND REFLEX TO MICROSCOPIC AND CULTURE Routine 11/25/2024 8:38 AM CDT Essential hypertension Pure hypercholesterole nikolas Abnormal glucose URINALYSIS AND REFLEX TO MICROSCOPIC AND CULTURE Routine 11/23/2024 3:52 PM CDT Urethral pain COLONOSCOPY 08/12/2024 12:07 PM SOCIAL MEDIA DEVELOPER SCREENING MAMMOGRAM BILATERAL W ARTUR Schedule Routine, Read Routine (OP Routine) 02/26/2024 11:02 AM CDT Screening mammogram, encounter for HM PAP SMEAR WITH HPV Routine 11/11/2018 HM HEPATITIS C SCREENING Routine 05/26/2017 from Last 3 Months or Most Recently Relevant to Health Maintenance Results * REFLEXIVE URINE CULTURE (11/25/2024 8:38 AM CDT) Urine culture [facility] Comment:NO CULTURE INDICATED 11/25/2024 8:38 AM CDT 11/25/2024 8:41 AM CDT Narrative [facility] - 11/26/2024 7:01 AM CDT FASTING:YES FASTING: YES us Jinny Sam MD LAB MICROBIOLOGY - GENERAL O RDERABLES Final Result [facility] [address] [place] [address] * Thyroid Function [place] (11/25/2024 8:38 AM CDT) TSH 2.23 0.40 - 4.50 mIU/L [facility] Blood 11/25/2024 8:38 AM CDT 11/25/2024 8:41 AM CDT Narrative [facility] - 11/26/2024 7:01 AM CDT FASTING:YES FASTING: YES us Jinny Sam MD LAB BLOOD ORDERABLES Final R esult [facility] [address] [place] [address] * Urinalysis reflex to microscopic and culture Urine, clean voided (11/25/2024 8:38 AM CDT) Color, ur YELLOW YELLOW [facility] Appearance, ur CLEAR CLEAR [facility] Specific gravity 1.009 1.001 - 1.035 [facility] pH, ur < OR = 5.0 5.0 - 8.0 [facility] Glucose, ur NEGATIVE NEGATIVE [facility] Bilirubin, ur NEGATIVE NEGATIVE [facility] Ketones, ur NEGATIVE NEGATIVE [facility] Blood, ur NEGATIVE NEGATIVE [facility] Protein, ur, quant NEGATIVE NEGATIVE [facility] Nitrites, ur NEGATIVE NEGATIVE [facility] Leukocyte esterase, ur NEGATIVE NEGATIVE [facility] WBC, ur NONE SEEN < OR = 5 /HPF [facility] RBC, ur NONE SEEN < OR = 2 /HPF [facility] Epithelial cells, squamous, ur NONE SEEN < OR = 5 /HPF [facility] Bacteria, ur, quant NONE SEEN NONE SEEN /HPF [facility] Hyaline cast NONE SEEN NONE SEEN /LPF [facility] Note [facility] Comment: This urine was analyzed for the presence of WBC, RBC, bacteria, casts, and other formed elements. Only those elements seen were reported. Urine, clean voided 11/25/2024 8:38 AM CDT 11/25/2024 8:41 AM CDT Narrative [facility] - 11/26/2024 7:01 AM CDT FASTING:YES FASTING: YES us Jinny Sam MD LAB MICROBIOLOGY - GENERAL O RDERABLES Final Result [facility] [address] [place] [address] * (ABNORMAL) CBC with auto differential (11/25/2024 8:38 AM CDT) WBC 11.1(H) 3.8 - 10.8 Thousand/u L [facility] RBC, POC 4.46 3.80 - 5.10 Million/uL [facility] Hgb 13.5 11.7 - 15.5 g/dL [facility] Hct 40.3 35.0 - 45.0 % [facility] MCV 90.4 80.0 - 100.0 fL [facility] MCH 30.3 27.0 - 33.0 pg [facility] MCHC 33.5 32.0 - 36.0 g/dL [facility] Comment: For adults, a slight decrease in the calculated MCHC value (in the range of 30 to 32 g/dL) is most likely not clinically significant; however, it should be interpreted with caution in correlation with other red cell parameters and the patient's clinical condition. Rdw 12.4 11.0 - 15.0 % [facility] Platelets 302 140 - 400 Thousand/u L [facility] MPV 10.1 7.5 - 12.5 fL [facility] Neutrophils, abs 8,702(H) 1,500 - 7,800 cells/uL [facility] Lymphocytes, abs 1,532 850 - 3,900 cells/uL [facility] Monocyte abs 611 200 - 950 cells/uL [facility] Eosinophils, abs 233 15 - 500 cells/uL [facility] Basophils, abs 22 0 - 200 cells/uL [facility] Neutrophils 78.4 % [facility] Lymphocyte pct 13.8 % [facility] Monocytes 5.5 % [facility] Eosinophils 2.1 % [facility] Basophils 0.2 % [facility] Blood 11/25/2024 8:38 AM CDT 11/25/2024 8:41 AM CDT Narrative [facility] - 11/26/2024 7:01 AM CDT FASTING:YES FASTING: YES us Jinny Sam MD LAB BLOOD ORDERABLES Final R esult [facility] [address] [place] [address] * Albumin Creatinine Ratio, Urine (11/25/2024 8:38 AM CDT) Creatinine, ur 42 20 - 275 mg/dL [facility] Microalbumin, ur 0.3 See Note: mg/dL [facility] Comment: Reference Range: Reference Range Not established Microalbumin/creat ratio 7 <30 mg/g creat [facility] Comment: The ADA defines abnormalities in albumin excretion as follows: Albuminuria Category Result (mg/g creatinine) Normal to Mildly increased <30 Moderately increased 30-299 Severely increased > OR = 300 The ADA recommends that at least two of three specimens collected within a 3-6 month period be abnormal before considering a patient to be within a diagnostic category. Urine 11/25/2024 8:38 AM CDT 11/25/2024 8:41 AM CDT Narrative [facility] - 11/26/2024 7:01 AM CDT FASTING:YES FASTING: YES us Jinny Sam MD LAB URINE ORDERABLES Final R esult [facility] [address] [place] [address] * Hemoglobin A1c (11/25/2024 8:38 AM CDT) Hgb A1C 5.5 <5.7 % of total Hgb [facility] Comment: For the purpose of screening for the presence of diabetes: <5.7% Consistent with the absence of diabetes 5.7-6.4% Consistent with increased risk for diabetes (prediabetes) > or =6.5% Consistent with diabetes This assay result is consistent with a decreased risk of diabetes. Currently, no consensus exists regarding use of hemoglobin A1c for diagnosis of diabetes in children. According to [place] Diabetes Association (ADA) guidelines, hemoglobin A1c <7.0% represents optimal control in non- diabetic patients. Different metrics may apply to specific patient populations. Standards of Medical Care in Diabetes(ADA). Blood 11/25/2024 8:38 AM CDT 11/25/2024 8:41 AM CDT Narrative [facility] - 11/26/2024 7:01 AM CDT FASTING:YES FASTING: YES us Jinny Sam MD LAB BLOOD ORDERABLES Final R esult [facility] [address] [place] [address] * (ABNORMAL) Lipid panel (11/25/2024 8:38 AM CDT) [facility] Cholesterol 228(H) <200 mg/dL [facility] HDL 53 > OR = 50 mg/dL [facility] Triglycerides 226(H) <150 mg/dL [facility] Comment: If a non-fasting specimen was collected, consider repeat triglyceride testing on a fasting specimen if clinically indicated. Pb et al. J. of Clin. Lipidol. 2015;9:129-169. LDL 139(H) mg/dL (calc) [facility] Comment: Reference range: <100 Desirable range <100 mg/dL for primary prevention; <70 mg/dL for patients with CHD or diabetic patients with > or = 2 CHD risk factors. LDL-C is now calculated using the Emilio-Almazan calculation, which is a validated novel method providing better accuracy than the Friedewald equation in the estimation of LDL-C. Emilio SS et al. FRANKIE. 2013;310(19): 8283-2920 (http://education.WorkProducts/faq/DAE579) Chol/HDL ratio 4.3 <5.0 (calc) [facility] Non-HDL, (LDL+VLDL) 175(H) <130 mg/dL (calc) [facility] Comment: For patients with diabetes plus 1 major ASCVD risk factor, treating to a non-HDL-C goal of <100 mg/dL (LDL-C of <70 mg/dL) is considered a therapeutic option. Blood 11/25/2024 8:38 AM CDT 11/25/2024 8:41 AM CDT Narrative [facility] - 11/26/2024 7:01 AM CDT FASTING:YES FASTING: YES us Jinny Sam MD LAB BLOOD ORDERABLES Final R esult [facility] [address] [place] [address] * (ABNORMAL) Comprehensive metabolic panel (11/25/2024 8:38 AM CDT) Glucose 109(H) 65 - 99 mg/dL [facility] Comment: Fasting reference interval For someone without known diabetes, a glucose value between 100 and 125 mg/dL is consistent with prediabetes and should be confirmed with a follow-up test. BUN 20 7 - 25 mg/dL [facility] Creatinine 0.82 0.50 - 1.05 mg/dL [facility] eGFR 80 > OR = 60 mL/min/1.7 3m2 [facility] BUN/creat ratio SEE NOTE: 6 - 22 (calc) [facility] Comment: Not Reported: BUN and Creatinine are within reference range. Sodium 132(L) 135 - 146 mmol/L [facility] Potassium, pl 4.3 3.5 - 5.3 mmol/L [facility] Chloride 101 98 - 110 mmol/L [facility] CO2 23 20 - 32 mmol/L [facility] Calcium 9.6 8.6 - 10.4 mg/dL [facility] Protein, sr 6.7 6.1 - 8.1 g/dL [facility] Albumin 4.6 3.6 - 5.1 g/dL [facility] GLOBULIN 2.1 1.9 - 3.7 g/dL (calc) [facility] Alb/glob ratio 2.2 1.0 - 2.5 (calc) [facility] Bilirubin, total 1.0 0.2 - 1.2 mg/dL [facility] [employer] [facility] Alk phos 103 37 - 153 U/L [facility] AST 56(H) 10 - 35 U/L [facility] ALT (SGPT) 44(H) 6 - 29 U/L [facility] Blood 11/25/2024 8:38 AM CDT 11/25/2024 8:41 AM CDT Narrative [facility] - 11/26/2024 7:01 AM CDT FASTING:YES FASTING: YES us Jinny Sam MD LAB BLOOD ORDERABLES Final R esult [facility] [address] [place] [address] * Urinalysis reflex to microscopic and culture Urine, clean voided (11/23/2024 3:52 PM CDT) Color, ur Straw Yellow Comment:Testing performed by : [address] [address] Clarity, ur Clear Clear [facility]AN[facility]A Comment:Testing performed by : [address] [address] Specific gravity, ur 1.005 1.003 - 1.030 SHANIKA Comment:Testing performed by : [address] [address] pH, urine 6.5 SHANIKA Comment: Interpretive Data U rine pH is affected by diet, medications, systemic acid-base disturbances, and renal tubular function. pH may affect urinary stone formation. For example, urine pH below 6.0 may help reduce the tendency for calcium phosphate stones and pH greater than 6.0 may reduce the tendency for uric acid stone formation. Source: [employer] Current Interpretive Data was last revised on 2017 Testing performed by: [address] [address] Protein, ur ql Negative Negative SHANIKA Comment:Testing performed by : [address] [address] Glucose, ur ql Negative Negative SHANIKA Comment:Testing performed by : [address] [address] Ketones, ur Negative Negative SHANIKA Comment:Testing performed by : [address] [address] Bilirubin, ur Negative Negative SHANIKA Comment:Testing performed by : [facility], [address] [place] [address], [place]., [address] Blood, ur Negative Negative SHANIKA Comment:Testing performed by : [facility], [address] [place] [address], [place]., [address] Urobilinogen, ur <2.0 <2.0 mg/dL SH[facility]A Comment:Testing performed by : [address], [place]., [address] Nitrite, ur Negative Negative SHANIKA Comment:Testing performed by : [address], [place]., [address] Leukocyte esterase, ur Negative Negative SHANIKA Comment:Testing performed by : [address], [place]., [address] UA reflex comment Reflex conditions for microscopic UA and culture not met. SHANIKA Comment:Testing performed by : [address], [place]., [address] Urine, clean voided 11/23/2024 3:52 PM CDT 11/23/2024 6:53 PM CDT Narrative [facility] - 11/23/2024 7:00 PM CDT Urine Collection Method->Clean Catch us Jinny Sam MD LAB MICROBIOLOGY - GENERAL O RDERABLES Final Result [facility] [address] [facility] Department [place] [address] * Colonoscopy (08/12/2024 12:07 PM SOCIAL MEDIA DEVELOPER) Anatomical Region Laterality Modality Other Narrative Procedure Note Mat Benjamin MD - 08/12/2024 12:07 PM CST [facility] GI ENDOSCOPY Patient Name: Samara Bethea Procedure Date: 08/12/2024 12:07 PM Date of : 1960 Admit Type: Outpatient Age: 63 Gender: Female Attending MD: Mat Benjamin MD Room: [facility] ENDOSCOPY ROOM 04 Note Status: Finalized Procedure: Colonoscopy Indications: Screening for colorectal malignant neoplasm,average risk Referring MD: Providers: Mat Benjamin MD Medicines: See the Anesthesia note for documentation of the administered medications Complications: No immediate complications. Estimated Blood Loss: Estimated blood loss was minimal. Procedure: Pre-Anesthesia Assessment: - Prior to the procedure, a History and Physicalwas performed, and patient medications and allergieswere reviewed. The risks and benefits of the procedureand the sedation options and risks were discussed withthe patient. All questions were answered and informed consent was obtained. Patient identification and proposed procedure were verified. After reviewingthe risks and benefits, the patient was deemed in satisfactory condition to undergo the procedure.The anesthesia plan was to use monitored anesthesiacare (MAC). Immediately prior to administration of medications, the patient was re-assessed foradequacy to receive sedatives. The heart rate, respiratory rate, oxygen saturations, blood pressure, adequacyof pulmonary ventilation, and response to care were monitored throughout the procedure. The physical status of the patient was re-assessed after the procedure. The benefits, risks and alternatives of theprocedure and sedation were discussed and informed consentwas obtained. All questions were answered. Please referto the signed informed consent document in the medical record. The scope was passed under direct vision.The CF-[id number] colonoscope was introduced through theanus and advanced to the terminal ileum, with identification of the appendiceal orifice and IC valve. The colonoscopy was performed without difficulty. The patient tolerated the procedurewell. The quality of the bowel preparation was good.Scope insertion time was 4 minutes. Scope withdrawal time was 10 minutes. Prep was administered in a splitdose. Findings: The perianal and digital rectal examinations were normal. The visualized terminal ileum appeared normal. Colonic mucosa normal. Random whole colon biopsies for histology were taken with a cold forceps for evaluation of microscopic colitis. Internal hemorrhoids were found. The hemorrhoids were small. Impression: - The examined portion of the terminal ileum was normal. - The entire examined colon is normal. Biopsied. - Internal hemorrhoids. Recommendation: - Await pathology results. - Resume previous diet today. - Discharge patient to home. - Patient has a contact number available for emergencies. The signs and symptoms of potential delayed complications were discussed with thepatient. Return to normal activities tomorrow. Written discharge instructions were provided to thepatient. - Repeat colonoscopy in 10 years for screening purposes. - I would be happy to see you in my GI clinic ifyou have further questions or concerns or if symptoms progress Mat Benjamin MD 08/12/2024 12:33:40 PM Number of Addenda: 0 Note Initiated On: 08/12/2024 12:07 PM Recognized by the [place] [employer] for promoting quality in endoscopy us Mat Benjamin MD ENDOSCOPY PROCEDURES [place] l Result * Screening Mammogram Bilateral W Artur (02/26/2024 11:02 AM CDT) Anatomical Region Laterality Modality Breast Bilateral Mammography Narrative 02/29/2024 2:57 PM CDT Mammogram Technique: Bilateral Digital Breast Tomosynthesis, Bilateral C-view 2D Screening mammogram. Views obtained: bilateral craniocaudal and bilateral mediolateral oblique. Computer Aided Detection was performed. Mammogram Findings: The present examination has been compared to prior imaging studies performed at [facility] on 07/12/2021, 07/29/2021 and 12/01/2022. There are scattered areas of fibroglandular density. There is no suspicious abnormality in either breast. Impression: There is no mammographic evidence of malignancy. Annual screening mammography is recommended. OVERALL FINAL ASSESSMENT: BI-RADS CATEGORY 1: Negative. Procedure Note Patsy Molina MD - 02/29/2024 Mammogram Technique: Bilateral Digital Breast Tomosynthesis, Bilateral C-view 2D Screening mammogram. Views obtained: bilateral craniocaudal and bilateral mediolateral oblique. Computer Aided Detection was performed. Mammogram Findings: The present examination has been compared to prior imaging studies performed at [facility] on 07/12/2021, 07/29/2021 and 12/01/2022. There are scattered areas of fibroglandular density. There is no suspicious abnormality in either breast. Impression: There is no mammographic evidence of malignancy. Annual screening mammography is recommended. OVERALL FINAL ASSESSMENT: BI-RADS CATEGORY 1: Negative. us Self Screening Mammogram IMG MAMMO PROCEDURES Fi nal Result * PAP SMEAR WITH HPV (11/11/2018) Historical Provider HEALTH MAINTENANCE Final Result * HEPATITIS C SCREENING (05/26/2017) HEP C Normal Historical Provider HEALTH MAINTENANCE Final Result from Last 3 Months or Most Recently Relevant to Health Maintenance Insurance [facility] [place] Care Teams Facing End Trimmer Relationship Specialty Start Date End Date Jinny Sam MD [address] [place] [address] [address] [place] [address] PCP - General Internal Medicine 11/16/19 Yanet Westfall MD Consulting Physician Pulmonary Disease 04/18/19 Alma Francisco MD 3 [facility] [address] [place] [address] Referring Physician Cardiology 04/18/19 Jacquelin Holden MD [address] [place] [address] Surgeon Surgical Oncology 04/18/19 Horace Zapien MD [address] [place] [address] Referring Physician Dermatology 04/18/19
--- OUTSIDE RECORDS SUMMARY | 2024-12-27 19:17 | XMS_ITS | Referral Summary ---
Author Organization [facility] Address [address] [place] [address] Care Team Providers Care Research Analyst Name Role Phone Yanet Westfall MD Unavailable [phone] Alma Francisco MD Unavailable [phone] Jacquelin Holden MD Unavailable [phone] Horace Zapien MD Unavailable [phone] Jinny Sam MD Primary Care Provider [phone] Encounters Date Type Department Care Team Description 12/23/2024 Telephone [facility] Obstetrics and Gynecology [address] [place] [address] Rahel Feldman Scheduling Appointments 12/07/2024 3:30 PM CDT Office Visit [facility] [address] [place] [phone] Jinny Sam MD Annual physical exam (Primary Dx); Class 1 obesity due to excess calories with serious comorbidity and body mass index (BMI) of 30.0 to 30.9 in adult; Abnormal glucose; Essential hypertension; Myalgia; Pure hypercholesterolemia; Anxiety with depression; Transaminitis; Bladder prolapse, female, acquired 11/28/2024 Results Follow-Up [facility] [address] [place] [phone] Jinny Sam MD Urinalysis reflex to microscopic and culture Urine, clean voided 11/27/2024 Results Follow-Up [facility] [address] [place] [phone] Jinny Sam MD CBC with auto differential, Comprehensive metabolic panel, Lipid panel, Additional followed-up results: 5 11/23/2024 3:25 PM CDT Lab [facility] Lab [address] [place] [address] Urethral pain 11/14/2024 Telephone [facility] [address] [place] [phone] Jinny Sam MD Exposed to Influenza A from Last 3 Months Allergies Active Allergy Reactions Criticality Noted Date [...] Plan (12/07/2024 4:58 PM CDT): Seen by fire protection engineering technician at [place] told she has grade 1 prolapse of [...] Assessment & Plan (10/23/2023 9:30 AM CDT): L heel - surgically corrected, 06/12/2023, Dr Borrego R heel - not surgically corrected, affects gait and in pain Affecting gait, knees and back Treatment-emergent central sleep apnea Assessment & Plan (03/10/2024 4:00 PM CDT): Due to continued symptoms, the patient will continue with auto SV BiPAP therapy. I have ordered a mask and filters. [facility] Assessment & Plan (04/07/2023 1:30 PM CDT): The patient is reluctant to use the [employer] auto SV BiPAP unit because she has seen dust particles in the humidifier. She has not received a replacement unit and she did register with [employer] in 2020. Her current unit is 4 years old. I did ask her to contact her private insurance company to see if they would be willing to pay for a new [employer] auto SV BiPAP unit. I also requested that she contact [employer] again and see when she might receive [...] maintenance. Assessment & Plan (09/30/2022 7:54 AM BURNER OPERATOR): covid bivalent booster due Colonoscopy due, schedule [...] and establishing or updating healthcare power of patent attorney document and providing our office with a copy. Assessment & Plan (07/10/2021 1:09 PM BURNER OPERATOR): Reviewed previous labs and diagnostic test results. [...] maintenance. Assessment & Plan (06/13/2020 3:04 PM BURNER OPERATOR): Wear sunscreen with SPF over 50 while [...] please contact the office. I strongly encourage Sitestar[employer] sign ups. It can facilitate communication flow. [...] calories Assessment & Plan (09/30/2022 3:34 PM BURNER OPERATOR): Work on attempts to lose weight about [...] loss Assessment & Plan (07/10/2021 1:11 PM BURNER OPERATOR): Work on wt loss Exercise 4-5 d a week for 45-60 mins a day to lose weight, burn calories No sugar diet Assessment & Plan (02/13/2021 3:56 PM CDT): Patient to call insurance plan and inquire if [employer] or [employer] are covered for weight loss for BMI 31.14, HTN, Pre DM, central sleep apnea Assessment & Plan (06/13/2020 3:36 PM BURNER OPERATOR): Work on wt loss Exercise regularly Lose about 40 lbs LPRD (laryngopharyngeal reflux disease) 06/13/20 Overview (06/13/2020): Dr Maharaj ENT On rx prilosec 40 mg bid Assessment & Plan (02/13/2021 3:44 PM CDT): No longer on prilosec 40mg 2x a day, cont under Carol Ann Takes tums prn since episodes are sporadic Avoid menthol cough gtts Avoid foods that can cause more reflux Assessment & Plan (06/13/2020 3:30 PM BURNER OPERATOR): Cont on prilosec 40mg 2x a day, [...] 5.7 Assessment & Plan (09/30/2022 3:51 PM BURNER OPERATOR): Better, tolerating metformin Cont same one nightly [...] diet Assessment & Plan (07/10/2021 1:12 PM BURNER OPERATOR): Remains at risk for DM BMI over 30 Work on wt loss Exercise for wt loss FBS 104, a1 5.7 Assessment & Plan (02/13/2021 3:57 PM CDT): At risk for DM Consider wt loss meds williams saxenda and or weluciey Follow low carbohydrate high-protein diet. Avoid eating sugars. Patient should read labels and make sure there are no ingredients that contain added sugar, or fructose, sucrose or anything ends in OSE. Exercise regularly, limit food portions. Follow proper serving sizes. Work on add'l weight loss. Will Monitor a1c on a 3-6mos basis. Assessment & Plan (06/13/2020 6:16 PM BURNER OPERATOR): At risk for DM a1c today is [...] diet Assessment & Plan (09/30/2022 3:52 PM BURNER OPERATOR): Improving Cont statin low dose Low chol diet Assessment & Plan (01/09/2022 3:21 PM CDT): Cont low chol diet Cont statin therapy Assessment & Plan (07/10/2021 1:13 PM BURNER OPERATOR): Numbers could be better, LDL goal under [...] regimen. Assessment & Plan (06/13/2020 3:44 PM BURNER OPERATOR): Follow low chol diet Cont crestor therapy Stable The 10-year ASCVD risk score (Jadereena PAULINO Jr., et al., 2013) is: 4% [...] regularly Assessment & Plan (09/30/2022 3:52 PM BURNER OPERATOR): Stable Cont same arb dose and hctz Cont wt loss exercise Assessment & Plan (01/09/2022 3:21 PM CDT): Ff low sodium diet Exercise in the water or ride a stationary bike Assessment & Plan (07/10/2021 3:35 PM BURNER OPERATOR): ECHO 2020, normal Dr Maryam bp controlled Ff low sodium diet Work [...] stable. Assessment & Plan (06/13/2020 3:41 PM BURNER OPERATOR): Controlled Cont same regimen Assessment & Plan [...] on 06/12/2023 Most recent EKG 03/23/2023 at [facility] in chart Do not take any meds morning of surgery Avoid mvi 7 d before surgery Do not take advil/ibuprofen/motrin/aspirin within 7 days of surgery Acute viral syndrome 11/16/2019 020 Assessment & Plan (04/18/2020 8:55 AM CDT): Considering recent trip to [place], need to r/o covid Suggest rest, tylenol [...] productive cough, lethargy, rash etc. Call office, [facility] covid call center or go to the [...] specialist Assessment & Plan (06/13/2020 3:25 PM BURNER OPERATOR): Compliant with BiPap Stable Dr Westfall Assessment [...] Contact dermatitis and other eczema 12/25/2015 04/18/2019 Immunizations Immunization Administration Dates Next Due Influenza, Quadrivalent, Spl it, Preservative Free, Intramuscular 06/03/2023,05/27/2022,07/10/2021,06/13 Influenza, Trivalent, Preser vative Free, Intramuscular 06/08/2024 Influenza, Unspecified 05/27/2022,07/10/2021,11/2019 Pneumococcal Conjugate Pcv20 06/08/2024 TD Preservative Free 03/15/2010 Td, Adsorbed, Preservative F ree, Adult Use, Lf Unspecified 03/15/2010 Tdap 03/15/2010 ZOSTER Recombinant 09/28/2020,06/29/2020 Social History Tobacco Use Types Packs/Day Years [...] on file Legal Sex Female 11:22 PM BURNER OPERATOR Gender Identity Female 07/22/2018 2:36 PM BURNER OPERATOR Sexual Orientation Not on file 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 on file 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 Not on file Not on file Last Filed Vital Signs Vital Sign Reading Time Taken Comments Blood Pressure 132/82 12/07/2024 3:36 PM CDT Pulse 74 12/07/2024 3:36 PM CDT Temperature 36.2 C (97.2 F) 12/07/2024 3:36 PM CDT Respiratory Rate 18 08/12/2024 12:5 0 PM BURNER OPERATOR Oxygen Saturation 95% 12/07/2024 3:36 PM CDT Inhaled Oxygen Concentration - - Weight 89.7 kg (197 lb 12.8 oz) 12/07/2024 3:36 PM CDT Height 170.2 cm (5' 7 ) 12/07/2024 3:36 PM CDT Body Mass Index 30.98 12/07/2024 3:36 PM CDT Plan of Treatment Not on file Medical Devices Implanted Type Area Calender Roll Operator Device Identifier Shelf Expiration Date Model / Serial / Lot Left Foot Surgery (Muse) Left: Foot Procedures Procedure Name Priority Date/Time [...] CDT Urethral pain COLONOSCOPY 08/12/2024 12:07 PM BURNER OPERATOR SCREENING MAMMOGRAM BILATERAL W ARTUR Schedule Routine, Read Routine (OP Routine) 02/26/2024 11:02 AM CDT Screening mammogram, encounter for HM PAP SMEAR WITH HPV Routine 11/11/2018 HM HEPATITIS C SCREENING Routine 05/26/2017 from Last 3 Months or Most Recently Relevant to Health Maintenance Results * REFLEXIVE URINE CULTURE (11/25/2024 8:38 AM CDT) Urine culture [facility] Comment:NO CULTURE INDICATED 11/25/2024 8:38 AM CDT 11/25/2024 8:41 AM CDT Narrative [facility] - 11/26/2024 7:01 AM CDT FASTING:YES FASTING: YES Jinny Sam MD LAB MICROBIOLOGY - GENERAL O RDERABLES Final Result Performing Organization Address City/[facility]/ZIP Co de Phone Number [facility] [address] [place] [address] * Thyroid Function [place] (11/25/2024 8:38 AM CDT) Pathologist [facility] TSH 2.23 0.40 - 4.50 mIU/L [facility] Blood 11/25/2024 8:38 AM CDT 11/25/2024 8:41 AM CDT Narrative [facility] - 11/26/2024 7:01 AM CDT FASTING:YES FASTING: YES Jinny Sam MD LAB BLOOD ORDERABLES Final R esult Performing Organization Address City/[facility]/ZIP Co de Phone Number [facility] [address] [place] [address] * Urinalysis reflex to microscopic and culture Urine, clean voided (11/25/2024 8:38 AM CDT) Color, ur YELLOW YELLOW [facility] Appearance, ur CLEAR CLEAR [facility] Specific gravity 1.009 1.001 - 1.035 [facility] pH, ur < OR = 5.0 5.0 - 8.0 [facility] Glucose, ur NEGATIVE NEGATIVE [facility] Bilirubin, ur NEGATIVE NEGATIVE [facility] Ketones, ur NEGATIVE NEGATIVE [facility] Blood, ur NEGATIVE NEGATIVE [facility] Protein, ur, quant NEGATIVE NEGATIVE [facility] Nitrites, ur NEGATIVE NEGATIVE [facility] Leukocyte esterase, ur NEGATIVE NEGATIVE [facility] WBC, ur NONE SEEN < OR = 5 /HPF [facility] RBC, ur NONE SEEN < OR = 2 /HPF [facility] Epithelial cells, squamous, ur NONE SEEN < OR = 5 /HPF [facility] Bacteria, ur, quant NONE SEEN NONE SEEN /HPF [facility] Hyaline cast NONE SEEN NONE SEEN /LPF [facility] Note [facility] Comment: This urine was analyzed for the presence of WBC, RBC, bacteria, casts, and other formed elements. Only those elements seen were reported. Urine, clean voided 11/25/2024 8:38 AM CDT 11/25/2024 8:41 AM CDT Narrative [facility] - 11/26/2024 7:01 AM CDT FASTING:YES FASTING: YES us Jinny Sam MD LAB MICROBIOLOGY - GENERAL O RDERABLES Final Result [facility] [address] [place] [address] * (ABNORMAL) CBC with auto differential (11/25/2024 [...] LAB BLOOD ORDERABLES Final R esult [facility] [address] [place] [address] * Albumin Creatinine Ratio, Urine (11/25/2024 8:38 AM CDT) Creatinine, ur 42 20 - 275 mg/dL [facility] Microalbumin, ur 0.3 See Note: mg/dL [...] 11/26/2024 7:01 AM CDT FASTING:YES FASTING: YES Jinny Sam MD LAB URINE ORDERABLES Final R esult Performing Organization Address City/[facility] Co de Phone Number [facility] [address] [place] [address] * Hemoglobin A1c (11/25/2024 8:38 AM CDT) Hgb A1C 5.5 <5.7 % of total Hgb [facility] Comment: For the purpose of screening for the presence of diabetes: <5.7% Consistent with the absence of diabetes 5.7-6.4% Consistent with increased risk for diabetes (prediabetes) > or =6.5% Consistent with diabetes This assay result is consistent with a decreased risk of diabetes. Currently, no consensus exists regarding use of hemoglobin A1c for diagnosis of diabetes in children. According to [place] Diabetes Association (ADA) guidelines, hemoglobin A1c <7.0% represents optimal control in non- diabetic patients. Different metrics may apply to specific patient populations. Standards of Medical Care in Diabetes(ADA). Blood 11/25/2024 8:38 AM CDT 11/25/2024 8:41 AM CDT Narrative [facility] - 11/26/2024 7:01 AM CDT FASTING:YES FASTING: YES Jinny Sam MD LAB BLOOD ORDERABLES Final R esult Performing Organization Address City/[facility] Co de Phone Number [facility] [address] [place] [address] * (ABNORMAL) Lipid panel (11/25/2024 8:38 AM CDT) Cholesterol 228(H) <200 mg/dL [facility] HDL 53 > OR = 50 mg/dL [facility] Triglycerides 226(H) <150 mg/dL [facility] Comment: If a non-fasting specimen was collected, consider repeat triglyceride testing on a fasting specimen if clinically indicated. Pb et al. J. of Clin. Lipidol. 2015;9:129-169. LDL 139(H) mg/dL (calc) [facility] Comment: Reference range: <100 Desirable range <100 mg/dL for primary prevention; <70 mg/dL for patients with CHD or diabetic patients with > or = 2 CHD risk factors. LDL-C is now calculated using the Emilio-Almazan calculation, which is a validated novel method providing better accuracy than the Friedewald equation in the estimation of LDL-C. Emilio SS et al. FRANKIE. 2013;310(19): 4611-6651 (http://education.MindJolt/faq/WYK658) Chol/HDL ratio 4.3 <5.0 (calc) [facility] Non-HDL, (LDL+VLDL) 175(H) <130 mg/dL (calc) [facility] Comment: For patients with diabetes plus 1 major ASCVD risk factor, treating to a non-HDL-C goal of <100 mg/dL (LDL-C of <70 mg/dL) is considered a therapeutic option. Blood 11/25/2024 8:38 AM CDT 11/25/2024 8:41 AM CDT Narrative [facility] - 11/26/2024 7:01 AM CDT FASTING:YES FASTING: YES us Jinny Sam MD LAB BLOOD ORDERABLES Final R esult [facility] [address] [place] [address] * (ABNORMAL) Comprehensive metabolic panel (11/25/2024 8:38 AM CDT) [facility] Glucose 109(H) 65 - 99 mg/dL [facility] Comment: Fasting reference interval For someone without known diabetes, a glucose value between 100 and 125 mg/dL is consistent with prediabetes and should be confirmed with a follow-up test. BUN 20 7 - 25 mg/dL [facility] Creatinine 0.82 0.50 - 1.05 mg/dL [facility] eGFR 80 > OR = 60 mL/min/1.7 3m2 [facility] BUN/creat ratio SEE NOTE: 6 - 22 (calc) [facility] Comment: Not Reported: BUN and Creatinine are within reference range. Sodium 132(L) 135 - 146 mmol/L [facility] Potassium, pl 4.3 3.5 - 5.3 mmol/L [facility] Chloride 101 98 - 110 mmol/L [facility] CO2 23 20 - 32 mmol/L [facility] Calcium 9.6 8.6 - 10.4 mg/dL [facility] Protein, sr 6.7 6.1 - 8.1 g/dL [facility] Albumin 4.6 3.6 - 5.1 g/dL [facility] GLOBULIN 2.1 1.9 - 3.7 g/dL (calc) [facility] Alb/glob ratio 2.2 1.0 - 2.5 (calc) [facility] Bilirubin, total 1.0 0.2 - 1.2 mg/dL [facility] Alk phos 103 37 - 153 U/L [facility] AST 56(H) 10 - 35 U/L [facility] ALT (SGPT) 44(H) 6 - 29 U/L [facility] Blood 11/25/2024 8:38 AM CDT 11/25/2024 8:41 AM CDT Narrative [facility] - 11/26/2024 7:01 AM CDT FASTING:YES FASTING: YES us Jinny Sam MD LAB BLOOD ORDERABLES Final R esult [facility] [address] [place] [address] * Urinalysis reflex to microscopic and culture Urine, clean voided (11/23/2024 3:52 PM CDT) Color, ur Straw Yellow Comment:Testing performed by : [address] [address] Clarity, ur Clear Clear SHANIKA Comment:Testing performed by : [address], [place]., [address] Specific gravity, ur 1.005 1.003 - 1.030 SHANIKA Comment:Testing performed by : [address], [place]., [address] pH, urine 6.5 SHANIKA Comment: Interpretive Data U rine pH is affected by diet, medications, systemic acid-base disturbances, and renal tubular function. pH may affect urinary stone formation. For example, urine pH below 6.0 may help reduce the tendency for calcium phosphate stones and pH greater than 6.0 may reduce the tendency for uric acid stone formation. Source: [facility] [employer] Current Interpretive Data was last revised on 2017 Testing performed by: [address] [address] Protein, ur ql Negative Negative SHANIKA Comment:Testing performed by : [address] [address] Glucose, ur ql Negative Negative SHANIKA Comment:Testing performed by : [address] [address] Ketones, ur Negative Negative SHANIKA Comment:Testing performed by : [address] [address] Bilirubin, ur Negative Negative SHANIKA Comment:Testing performed by : [address] [address] Blood, ur Negative Negative SHANIKA Comment:Testing performed by : [address] [address] Urobilinogen, ur <2.0 <2.0 mg/dL SHANIKA Comment:Testing performed by : [address] [address] Nitrite, ur Negative Negative SHANIKA Comment:Testing performed by : [address] [address] Leukocyte esterase, ur Negative Negative SHANIKA Comment:Testing performed by : [address], [place]., [address] UA reflex comment Reflex conditions for microscopic UA and culture not met. SHANIKA Comment:Testing performed by : [facility], [address] [place] [address]., [address] Urine, clean voided 11/23/2024 3:52 PM CDT 11/23/2024 6:53 PM CDT Narrative SHANIKA - 11/23/2024 7:00 PM CDT Urine Collection Method->Clean Catch us Jinny Sam MD LAB MICROBIOLOGY - GENERAL O RDERABLES Final Result SHANIKA [address] [facility] [place] [address] * Colonoscopy (08/12/2024 12:07 PM BURNER OPERATOR) Anatomical Region Laterality Modality Other Narrative Procedure Note Mat Benjamin MD - 08/12/2024 12:07 PM CST [facility] Patient Name: Samara Bethea Procedure Date: 08/12/2024 12:07 PM Date of : 1960 Admit Type: Outpatient Age: 63 Gender: Female Attending MD: Mat Benjamin MD Room: [facility] ENDOSCOPY ROOM 04 Note Status: Finalized Procedure: [...] The scope was passed under direct vision.The [id number] colonoscope was introduced through theanus and advanced [...] On: 08/12/2024 12:07 PM Recognized by the [place] [employer] for promoting quality [...] compared to prior imaging studies performed at [facility] on 07/12/2021, 07/29/2021 and 12/01/2022. There are [...] compared to prior imaging studies performed at [facility] on 07/12/2021, 07/29/2021 and 12/01/2022. There are scattered areas of fibroglandular density. There is no suspicious abnormality in either breast. Impression: There is no mammographic evidence of malignancy. Annual screening mammography is recommended. OVERALL FINAL ASSESSMENT: BI-RADS CATEGORY 1: Negative. Self Screening Mammogram IMG MAMMO PROCEDURES Fi nal Result * PAP SMEAR WITH HPV (11/11/2018) Historical Provider HEALTH MAINTENANCE Final Result * HEPATITIS C SCREENING (05/26/2017) HEP C Normal Historical Provider HEALTH MAINTENANCE Final Result from Last 3 Months or Most Recently Relevant to [place] [address] [facility] BL CHOICE [place]F [place] Care Teams Research Analyst Relationship Specialty Start Date End Date Jinny Sam MD [address] [facility] [address] [place] [address] PCP - General Internal Medicine 11/16/19 Yanet Westfall MD Consulting Physician Pulmonary Disease 04/18/19 Alma Francisco MD 3 [facility] [address] [place] [address] Referring Physician Cardiology 04/18/19 Jacquelin Holden MD [facility] [address] [place] [address] Surgeon Surgical Oncology 04/18/19 Horace Zapien MD [address] [place] [address] Referring Physician Dermatology 04/18/19
--- OUTSIDE RECORDS SUMMARY | 2024-12-27 19:17 | XMS_ITS | Encounter Summary ---
Author Organization [facility] Healthcare Address [address] [place] [id number] Care Team Providers Care Zoo Caretaker Name Role Phone Yanet Westfall MD Unavailable [phone] Alma Francisco MD Unavailable [phone] Jacquelin Holden MD Unavailable [phone] Horace Zapien MD Unavailable [phone] Jinny Sam MD Primary Care Provider [phone] Encounter Details Date Type Department Care Team (Late st Contact Info) Description 11/28/2024 Results Follow-Up 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 documented in this encounter Plan of Treatment Not on file documented as of this encounter Visit Diagnoses Not on filedocumented in this encounter Care Teams Zoo Caretaker Relationship Specialty Start Date End Date Jinny Sam MD [address] [place] [phone] PCP - General Internal Medicine 11/16/19 Yanet Westfall MD Consulting Physician Pulmonary Disease 04/18/19 Alma Francisco MD [facility] [address] [place] [address] Referring Physician Cardiology 04/18/19 Jacquelin Holden MD [facility] [address] [place] [address] Surgeon Surgical Oncology 04/18/19 Horace Zapien MD [address] [place] [address] Referring Physician Dermatology 04/18/19 documented as of this encounter
--- OUTSIDE RECORDS SUMMARY | 2024-12-27 19:17 | XMS_ITS | Data Portability ---
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 Plan of Treatment Reminders Order Date Submit Date Provider Last Modified By Organization Details Last Modified Time Details Appointments None recorded. Lab culture, urine 2024 025 EdRover [facility], [address] [place], [address], 5 00:14:09 urinalysis, dipstick [email or web address] [place] [address], [address] [place], [address], 5 17:03:27 pap, LB 2023 024 [facility]over [facility], [address] [place], [address], 4 17:59:41 HPV E6+E7 mRNA, qualitative PCR, cervix 2023 024 [facility], [address] [place] [address], [address], 4 15:26:16 Referral None recorded. Procedures None recorded. Surgeries None recorded. Imaging MAMMO, screening, digital, bilateral 09/20/ 2024 09/20/2 024 [email or web address] Not available 10/11/202 4 12:02:53 MAMMO, screening, digital, bilateral 2021 022 [email or web address] Not available 14:58:56 Medication Orders estradiol 0.01% (0.1 mg/gram) vaginal cream 2024 025 [id number], [address] [facility], [place], [place], [id number], 17:05:02 Patient TargetsNo targets recorded. Patient Instructions Encounter Date Encounter Id Patient Instructions Last Modified By Organization Details Last Modified Time 01/15/2022 [id number] atrophic vaginitis: care instructions Not available 01/17/2022 16:12:56 bladder training : care instructions Not available 01/17/2022 16:12:56 kegel exercises: care instructions Not available 01/17/2022 16:12:56 Stress Incontinence: Care Instructions Not available 01/17/2022 16:12:56 A healthy lifestyle: care instructions Not available 01/17/2022 15:51:15 calcium and vitamin D combination Not available 01/17/2022 15:51:15 depression (wome n only) Not available 01/17/2022 15:51:15 eating healthy foods: care instructions Not available 01/17/2022 15:51:15 exercise program : getting started Not available 01/17/2022 15:51:15 04/29/2024 [id number] body mass index: care instructions Not available 04/29/2024 13:20:06 mammogram: about this test Not available 04/29/2024 13:20:05 Reason for Referral None Reported. Results Created Date Observation Date Name Description Value Unit Range Abnormal Flag Note LastModifiedBy Organization Detail LastModifiedTime 02/19/20 22 02/18/2022 HPV HIGH RISK HPV high risk No specim en rec'd in lab Not Available [facility] [address] [place], [address], 02/18/2022 16:36:35 04/29/20 24 05/02/2024 HPV HIGH RISK HPV high risk Negati ve negati ve normal The HPV High Risk assay is inten ded for use as co-te sting with cytol ogy and not as a subst itute for regul ar cervi evelina cytol ogy scree daniel. This assay is not inten ded for use as a scree daniel devic e for women under age 30 with maurizio l cervi evelina cytol ogy. Not Available [facility] [address] [place], [address], 05/02/2024 15:26:16 04/29/20 24 05/03/2024 THINP REP TIS PAP clinical information: normal None given Not Available [address] [address] [place], [address], 05/03/2024 17:59:41 04/29/20 24 05/03/2024 THINP REP TIS PAP LMP: normal NONE GIVEN Not Available [address] [address] [place], [address], 05/03/2024 17:59:41 04/29/20 24 05/03/2024 THINP REP TIS PAP prev. Pap: normal NONE GIVEN Not Available [address] [address] [place], [address], 05/03/2024 17:59:41 04/29/20 24 05/03/2024 THINP REP TIS PAP prev. BX: normal NONE GIVEN Not Available [facility] [address] [address] [place], [address], 05/03/2024 17:59:41 04/29/2005/03/2024 THINP REP TIS PAP source: normal Cervi x Not Available [address] [address] [place], [address], 05/03/2024 17:59:41 04/29/20 24 05/03/2024 THINP REP TIS PAP statement of adequacy: normal Satis facto ry for evalu ation . Endoc ervic al/tr ansfo rmati on zone compo nent absen t. Not Available [address] [address] [place], [address], 05/03/2024 17:59:41 04/29/20 24 05/03/2024 THINP REP TIS PAP interpretati on/result: normal Cytol ogy Resul ts: Negat ena for intra epith elial lesio n or malig gaby . Not Available [address] [address] [place], [address], 05/03/2024 17:59:41 04/29/2005/03/2024 THINP REP TIS PAP comment: normal This Pap test has been evalu ated with compu ter toshia deborah techn ology . Not Available [address], [place], [address], 05/03/2024 17:59:41 04/29/20 24 05/03/2024 THINP REP TIS PAP cytotechnolo gist: normal BKA, CT( CP) CT scree daniel locat ion: [address] [address] [place] [address] Not Available [address] [address] [place], [address], 05/03/2024 17:59:41 04/29/2005/03/2024 THINP REP TIS PAP comment EXPLA NATOR Y NOTE: The Pap is a scree daniel test for cervi evelina cance r. It is not a diagn ostic test and is subje ct to false negat ena and false posit ena resul ts. It is most relia ble when a satis facto ry sampl e, regul jacqui obtai nadja, is submi tted with relev ant clini evelina findi ngs and histo ry, and when the Pap resul t is evalu ated along with histo rona and curre nt clini evelina infor matio n. Not Available [address] [address] [place], [address], 05/03/2024 17:59:41 12/03/1912/03/2024 CULTU RE, URINE , ROUTI NE culture, urine, routine SEE NOTE CULTU RE, URINE , ROUTI NE Micro Numbe r: [id number] Test Statu s: Final Speci men Sourc e: Urine Speci men Quali ty: Adequ ate Resul t: Mixed genit al kristine isola deborah. These super ficia l bacte ismael are not indic ative of a urina ry tract infec tion. No furth er organ ism ident ifica tion is warra nted on this speci men. If clini kimi indic ated, recol lect clean -catc h, mid-s tream urine and trans jerry immed iatel y to Urine Cultu re Trans port Tube. Not Available [address] [address] [place], [address], 12/04/2024 00:14:09 12/03/19 25 12/02/2024 urina lysis , dipst ick Leukocytes Trace Not Available [address], [address], 12/02/2024 15:49:01 12/03/19 25 12/02/2024 urina lysis , dipst ick Nitrite negati ve Not Available [address], [address], 12/02/2024 15:49:01 12/03/19 25 12/02/2024 urina lysis , dipst ick Urobilinogen .2 Not Available [address], [address], 12/02/2024 15:49:01 12/03/19 25 12/02/2024 urina lysis , dipst ick Protein Negati ve Not Available [address] [place], [address], 12/02/2024 15:49:01 12/03/1912/02/2024 urina lysis , dipst ick pH 5.0 Not Available [address], [place], [address], 12/02/2024 15:49:01 12/03/1912/02/2024 urina lysis , dipst ick Blood Negati ve Not Available [address], [place], [address], 12/02/2024 15:49:01 12/03/1912/02/2024 urina lysis , dipst ick Specific Rhodhiss 1.010 Not Available [address], [place], [address], 12/02/2024 15:49:01 12/03/1912/02/2024 urina lysis , dipst ick Ketone Negati ve Not Available [address], [place], [address], 12/02/2024 15:49:01 12/03/1912/02/2024 urina lysis , dipst ick Bilirubin Negati ve Not Available [address], [place], [address], 12/02/2024 15:49:01 12/03/1912/02/2024 urina lysis , dipst ick Glucose Negati ve Not Available [address], [place], [address], 12/02/2024 15:49:01 12/03/1912/02/2024 urina lysis , dipst ick Appearance Clear Not Available [address] [address] [facility], [place], [address], 12/02/2024 15:49:01 12/03/1912/02/2024 urina lysis , dipst ick Color Pale Yellow Not Available [facility] [address] [facility] [place], [address], 12/02/2024 15:49:01 Result Notes None recorded. Problems Name Problem SNOMED Code Status Onset Date Resolution Date Notes Provider Name and Address Organization Details Recorded Time Sampling of vagina for Papanicol aou smear Active 2020 Encounter for gynecologi evelina examinatio n (general) (routine) without abnormal findings; Progress: Stable Added By: Kati Kelly Add to Current Problems: YES ProblemSta tus: Current Not Available [facility] 21:54:27 Breast compositi on 545501229 Active 2017 Inconclusi ve mammogram; Progress: Stable Added By: Sophia Toscano Add to Current Problems: YES ProblemSta tus: Current Not Available [facility] 2 21:54:27 Screening for malignant neoplasm of cervix Active 2020 Encounter for screening for malignant neoplasm of cervix; Progress: Stable Added By: Kati Kelly Add to Current Problems: YES ProblemSta tus: Current Not Available [facility] 2 21:54:27 Female stress incontine nce 95338726 Active 2021 ALBERTO Marmolejo [address] [place], [address] , [facility] 2 16:04:41 Atrophic vaginitis 28322550 Active 2021 ALBERTO Marmolejo [address] [place], [address] , [facility] 2 16:05:03 Problem Notes None recorded. Procedures Surgical History Date Name Laterality Status Provider Name and Address Organization Details Recorded Time 024 Date of Last Pap Smear completed TONY DORMAN DO [address] [facility], [place], [address], [facility] 05/12/2024 16:35:00 024 Most Recent Mammogram completed Varsha Cleary [place] - [facility] 04/29/2024 12:29:48 023 Urodynamic Testing completed Etta Lizarraga [place] - [facility] 08/22/2022 12:48:12 nasal sinus procedure completed Naty Pietrusiak [facility] 01/15/2022 10:19:40 cholecystectomy completed Naty Pietrusiak [facility] 01/15/2022 10:19:49 Gall bladder completed Kait Marileejodie [facility] 01/15/2022 16:19:44 Imaging Results None recorded. Procedure Notes None recorded. Medical Equipment None Reported. Allergies Allergen ID Allergen Name Allergen Category Reaction Reaction Severity Criticality Documentation Date Start Date Code Code System Note Provider Name and Address Organization Details Recorded Time 070479 house dust allergeni c extract environme nt,medica tion Not available Not available Not available 01/15/2022 19562 9 RxNorm Kait Gricel null, [place] [facility] 2 16:19:43 237419 cat dander environme nt Not available Not available Not available 01/15/2022 46253 UNK Kait Monsalve null, [facility] 2 16:19:43 305133 mold extract environme nt Not available Not available Not available 01/15/2022 17823 8 RxNorm Kait Marileesch null, [place] [facility] 2 16:19:43 Medications Name Sig Start Date Stop Date Status Note LastModified by Organization Details LastModified Time amoxicill in 500 mg capsule 04/29 completed Not Available Not Available Not Available metformin 500 mg tablet active Not Available Not Available Not Available prednison e 10 mg tablet 01/15 completed Not Available Not Available Not Available azithromy mayuri 250 mg tablet TAKE 2 TABLETS BY MOUTH FOR 1 DAY THEN TAKE 1 TABLET BY MOUTH DAILY FOR 4 DAYS 12/02 completed Not Available Not Available Not Available benzonata te 200 mg capsule TLK 1 CAPSULE BY MOUTH THREE TIMES DAILY NEEDED FOR COUGH. KEEP OUT OF REACH OF CHILDREN 12/02 completed Not Available Not Available Not Available hydrocodo ne 5 mg-acetam inophen 325 mg tablet TAKE 1 TABLET BY MOUTH EVERY 4-6 HOURS NEEDED FOR PAIN 04/29 completed Not Available Not Available Not Available triamcino lone acetonide 0.1 % topical ointment 04/29 completed Not Available Not Available Not Available hydrochlo rothiazid e 25 mg tablet 12/02 completed Not Available Not Available Not Available irbesarta n 150 mg tablet TAKE 2 TABLETS BY MOUTH DAILY active Not Available Not Available No t Available estradiol 0.01% (0.1 mg/gram) vaginal cream INSERT 1 GRAM VAGINALL Y 2 TIMES A WEEK AT BEDTIME active Not Available Not Available No t Available albuterol sulfate HFA 90 mcg/actua tion aerosol inhaler INHALE 2 PUFFS EVERY 4 HOURS NEEDED FOR WHEEZING OR SHORTNES S OF BREATH 12/02 completed Not Available Not Available Not Available hydrocort isone 2.5 % topical ointment 12/02 completed Not Available Not Available Not Available metronida zole 0.75 % topical gel 04/29 completed Not Available Not Available Not Available mometason e 0.1 % topical cream APPLY TOPICALL Y DAILY TO HAND. active Not Available Not Available No t Available amoxicill in 875 mg-potass ium clavulana te 125 mg tablet 04/29 completed Not Available Not Available Not Available rosuvasta tin 5 mg tablet active Not Available Not Available Not Available bupropion HCl XL 150 mg 24 hr tablet, extended release active Not Available Not Available Not Available irbesarta n 01/15 completed irbesart an RxNorm: 01209 Refill Denied: No Refill DateOccu rred: 12/28/19 Edited by: so zuniga(Kati June ) on 12/28/19 21 Stopped by: so zuniga(Kati June ) on Not Available Not Available Not Available cholester ol 12/27 completed choleste rol Allow Substitu tion: False Refill Denied: No Refill DateOccu rred: 05/20/20 21 Edited by: so zuniga(Kati June ) on 12/28/19 21 Stopped by: so zuniga(Kati June ) on 12/28/19 21 Not Available Not Available Not Available rosuvasta tin 01/15 completed rosuvast atin RxNorm: 315716 Allow Substitu tion: False Refill Denied: No Refill DateOccu rred: 12/28/19 Edited by: so zuniga(Kati June ) on 12/28/19 Stopped by: so zuniga(Kati June ) on Not Available Not Available Not Available hydrochlo rothiazid e 12.5 mg tablet 04/29 completed Not Available Not Available Not Available GaviLyte- G 236 gram-22.7 4 gram-6.74 gram-5.86 gram oral solution TAKE DIRECTED 12/02 completed Not Available Not Available Not Available sodium,po tassium,m ag sulfates 17.5 gram-3.13 gram-1.6 gram oral soln MIX AND DRINK DIRECTED 12/02 completed Not Available Not Available Not Available Paxlovid 300 mg (150 mg x 2)-100 mg tablets in a dose pack active Not Available Not Available Not Available Vitals Date Recorded Body weight Body mass index (BMI) Body height Body temperature Systolic blood pressure Diastolic blood pressure Provider Name and Address Organization Details Last Updated DateTime 2 64054.2 5 g 31.8 kg/m2 170.18 cm 97.9 [degF] 150 mm[Hg] 110 mm[Hg] Kait Monsalve [facility] 2 16:28:25 Date Recorded Body height Body mass index (BMI) Body weight Body temperature Systolic blood pressure Diastolic blood pressure Provider Name and Address Organization Details Last Updated DateTime 2 170.18 cm 30.5 kg/m2 34480.0 8 g 96 [degF] 138 mm[Hg] 88 mm[Hg] Kimmy Marylister [facility] 2 11:06:54 Date Recorded Body height Body mass index (BMI) Body weight Body temperature Systolic blood pressure Diastolic blood pressure Provider Name and Address Organization Details Last Updated DateTime 4 170.18 cm 32.3 kg/m2 90218.0 3 g 96.6 [degF] 140 mm[Hg] 79 mm[Hg] Varsha Cleary [facility] 4 12:36:21 Date Recorded Body height Body mass index (BMI) Body weight Systolic blood pressure Diastolic blood pressure Provider Name and Address Organization Details Last Updated DateTime 12/02/2024 170.18 cm 30.8 kg/m2 22277.54 g 128 mm[Hg] 82 mm[Hg] Fabiola Flynnwilson [facility] 5 16:24:15 Social History Question Answer Notes LastModified by Organizat ion Details LastModified Time Tobacco Smoking Status Never Smoker Kait lewis, [facility] 01/15/2022 16:19:44 Are You Blind Or Do You Have Difficulty Seeing? Yes [email or web address] Information not available 04/29/2024 Are You Deaf Or Do You Have Serious Difficulty Hearing? No Information not available 01/15/2022 What Type Of Diet Are You Following? REGULAR Information not available 01/15/2022 How Many Children Do You Have? 1 [email or web address] Information not available 04/29/2024 Are There Any Occupational Health Risks Where You Work? No [email or web address] Information not available 04/29/2024 What Is Your Relationship Status? Information not available 01/15/2022 Are You Sexually Active? Yes Information not available 01/15/2022 Sex: Female Functional Status Question Answer Note LastModified by Organizat ion Details LastModified Time Do you use any illicit or recreational drugs? No Information not available 01/15/2022 Do you or have you ever used any other forms of tobacco or nicotine? No Information not available 01/15/2022 What is your level of alcohol consumption? Occasional Information not available 01/15/2022 Are you currently employed? Yes [email or web address] Information not available 04/29/2024 Do you or have you ever used e-cigarettes or vape? Never used electronic cigarettes Information not available 01/15/2022 What is your exercise level? None Information not available 01/15/2022 Mental Status None recorded. Family History Relationship Description Onset Age of this Age Resolved Age Notes LastModified by Organization Details LastModified Time Father Hypertensive disorder [email or web address] Not available 2021 16:19:44 Mother Hypertensive disorder [email or web address] Not available 2021 16:19:44 Mother Hypercholest erolemia [email or web address] Not available 2021 16:19:44 Sister Hypertensive disorder [email or web address] Not available 2021 16:19:44 Sister Hypercholest erolemia [email or web address] Not available 2021 16:19:44 Medical History Condition Response High Blood Pressure Y Incontinence Y Shingles Y Seasonal allergies Y High Cholesterol Y Gallbladder disease Y GERD (reflux) Y Gynecological History Statement/Question Response Date of last HPV 04/29/2024 Flow Moderate Date of LMP 01/08/2011 HPV Vaccine N Duration of Flow (days) 5 Age at Menarche 13 Current Control Method Menopause Most Recent Mammogram 02/26/2024 If Post Menopausal, Age at Menopause 52 Frequency of Cycle (Q days) 30 Date of Last Pap Smear 04/29/2024 Obstetrics History GPAL:G 1 P 1 0 0 1 Type Value Full Term 1 Living 1 Total 1 Past Encounters Encounter ID Performer Location Encounter Start Date Encounter Closed Date Diagnosis/Indication Diagnosis SNOMED-CT Code Diagnosis ICD10 Code Diagnosis Note [id number] ALBERTO Marmolejo [facility] [address] [place] [address] 01/15/2022 15:50:38 01/15/2022 17:31:59 Gynecologic examination 93154737 Z01.419 WWE completedP ap - up-to-date ; discussed q 5 year screening guidelines provided normal resultsEnc ouraged monthly SBEs, healthy diet, regular exercise, probiotics Breast ca screening- CBE wnls. Mammogram due 07/2022Lip id screening/ diabetes screening- PCP manages HTN, Hyperchole steremiaCo perry ca screening- she will discuss with her PCP; explained colonoscop y vs cologardDe pression screening- negSUI- schedule UDT, then f/u visit with physicianA trophic vaginitis and dypareunia - will try OTC vaginal moisturize rs Screening for malignant neoplasm of breast 110325526 Z12.39 Female str ess incontinence 07572268 N39.3 Discussed UDT and Bulkamid.S chedule UDT; schedule visit with physician to discuss tx options. Atrophic vaginitis 84716 000 N95.2 Explained vaginal estrogen therapy vs OTC vaginal moisturize rs. Moisturize rs have shown effectiven ess comparativ e to estrogen. Discussed R/B. Samara wants to try OTC moisturize rs first. [id number] Luan Carlton, DO [facility] h [address] [facility] [place] [address] 06/13/2022 10:49:27 06/13/2022 11:36:22 Urinary incontinence 093485399 R32 failed kegels - udt then bulkamid cysto if candidate [id number] Luan Carlton, DO [facility] [address] [facility] [place] [address] 08/22/2022 11:21:45 08/22/2022 14:49:38 Urinary incontinence 162868252 R32 [id number] TONY DORMAN, DO [facility] h [address] [facility] [place] [address] 04/29/2024 12:27:46 04/29/2024 17:18:23 Gynecologic examination 08142220 Z01.419 63y.o. here for annual exam.- Pap w/ hpv completed- Routine labs done with PCP- Mammo in February 2024; normal- Colonoscop y : referral sent by PCP- DEXA at 65- Depression screen POS- BMI counseling , diet and exercise reviewed - RTO for annual or PRN Screening for malignant neoplasm of cervix 810890083 Z12.4 Screening for malignant neoplasm of breast 318987235 Z12.31 Depression screening 171 312561 Z13.31 discussed positive scorept believes it to be situationa l Screening for malignant neoplasm of colon 858744849 Z12.11 [id number] ALBERTO CODY [facility] [address] [facility] [place] [address] 12/02/2024 16:04:05 12/07/2024 13:31:41 Increased frequency of urination 885545946 R35.0 UA dip negative, urine culture sent.Discu ssed benefits of vaginal estrogen therapy for post menopausal patients with urinary complaints such as dysuria, urgency.Pl an to start vaginal estrogen and treat per urine culture. Atrophy of vagina 115406 009 N95.2 --Vulvovag inal atrophy results from estrogen loss and is often associated with vulvovagin al complaints (eg, dryness, burning, dyspareuni a) in menopausal patients. --Urinary frequency and recurrent bladder infections may also occur. --The vagina and vulva get dry, thin, and inflamed. This can be uncomforta ble or make sex painful. --Some people have other symptoms in addition to dryness. They can include: - Vaginal burning or irritation - Making less lubricatio n (wetness) during sex - Pain during sex - Bleeding when something touches or rubs the vagina, such as after sex - Discharge or fluid from the vagina - Urinary problems, such as having to urinate often, having pain with urination, or leaking urine Discussed benefits of vaginal estrogen therapy to improve symptoms d/t atrophy noted on exam. Pt educated on risks/bene fits of Estrace therapy Pt amenable to POC. Rx for Estradiol cream sent. 1 applicatio n twice per week. Re-evaluat e symptoms in 8 weeks. Pt states understand ing. Midline cystocele 441990 003 N81.11 Grade 1 Cystocele noted, recommend follow up with Dr Carlton for further management Health Concerns Section Related Observation LastModified by Organization Detai ls LastModified Time None Recorded Concern Status LastModified by Organization Details LastModified Time None Recorded Advance Directives Directive None Recorded Payers Insurance Date Sequence Insurance Name Policy Number Policy Ramsey Covered Member ID Ramsey Member ID Guarantor Name 12/07/2024 1 [place] [id number] Samara L Risavy [id number] Samara L Risavy 04/27/2024 1 [place] [id number] Cameron S Risavy [id number] Samara L Risavy Notes Date Note Type Note Provider Name and Address Organization Details Recorded Time 2 text/html Annual GYNReported bypatient.Menstrual cycle:Post-menopause Urinary symptoms:No hematuria;Stress incontinence Vulva:No genital lesion Vagina:Normal vaginal discharge Breast:No breast pain; No breast lump; No nipple discharge Sexual complaints:No pain during intercourse;Sexual complaints;Decreased libido Menopausal Symptoms:still has menopausal symptoms mainly night Psychological symptoms:No depression; No anxiety; No PMDD Preventive measures:Encourage self breast examination; Encourage regular exercise; Needs to schedule colonoscopyNotes:Samara presents for her annual exam without pap. She c/o weight gain, low libido, dyspareunia, and incontinence. concerns; back pain.Lipid and diabetes screening by PCP. ALBERTO Marmolejo [address] [place], [address], [facility] [place] IV 01/17/2022 16:12:59 2 text/html IncontinenceReported bypatient.Quality:functio nal incontinence Severity:mild Onset/Timing:always Associated Symptoms:dribblingNotes:sarah aquino has tried kegeals x 2 years to no avail Luan Carlton, DO [address] [place] [address], [address], [facility] [place] IV 06/13/2022 11:30:32 4 text/html Pt is here for her annual, she is over due for her colonoscopy , her recent mammogram was , pt states she currently doesn't have any problems, issues, or concerns. TONY DORMAN, DO [facility] [place], [address], [facility] [place]. com. cn IV 04/29/2024 13:21:19 5 text/html Lower Urinary Tract Symptoms (LUTS)Reported bypatient.[facility] Quality:continuous; symptoms worse in the evening; pressure; worsening Severity:painless; constant; bothersome Onset/Timin-6 months Duration:4-10 times a day Context:denies excessive fluid intake; denies excessive caffeine intake; no dyspareunia; denies new medication treatment;abnormal voiding frequency; changes in voiding affect quality of life; with Pyridium; has not seen Urologist; has not previously used alpha blockers; number of pregnancies: 1; number of vaginal deliveries: 1 Associated Symptoms:no abdominal pain; no groin pain; no flank pain; no low back pain; no chills; no fever; no constipation; no diarrhea; no nausea; no vomiting; no temperaure; no straining; no post void dribbling; no hesitancy; empties well; no dysuria; no urine odor; no gross hematuria; no vaginal discharge; no vaginal itching or burning;weak force of stream;urgency;frequency; unknown incontinence;nocturia 5 times a night ALBERTO CODY [address] [place], [address], [facility] 12/07/2024 00:06:52 OBGyn Episode No OBEpisode recorded.
--- OUTSIDE RECORDS SUMMARY | 2024-12-27 19:17 | XMS_ITS | Continuity of Care Document ---
Author Organization [facility] Address [address] [place] [address] [address] [place] [address] Phone Care Team Providers Care Ground Support Equipment Mechanic Name Role Phone Easley OD, Michele Unavailable Unavailable Advance Directives Directive Yes / No Effective Date File Name No Information Encounters Encounter Description Practice Location Reason(s) For Visit Diagnoses Date Provider Providers Copied on Encounter [facility], [id number] [place] [address] [address], [place], [place], [id number], [place] tel:[phone] [facility] No Information 1-200 2 Easley OD Michele. [address] , [address], [place], [address], [place]. tel:[phone] Family History Family Member Type Diagnosis Age At Onset No Information Payers Payer name Insurance type Covered constitution party ID Authoriza tion(s) No Information Social History Type Description Quantity Date Captured Comments Sex Female Smoking Status No Information Chief Complaint And Reason For Visit No Information Reason For Referral Reason For Referral No Information History Of Present Illness Encounter Date Complaint History Of Prese nt Illness No Information Functional Status Date Functional Assessmen t No Information Instructions Date Instruction Additional Infor mation No Information Assessments Type Assessment Date No Information Patient Care Teams Name Effective Dates (start - stop) Status Members No Information
--- OUTSIDE RECORDS SUMMARY | 2024-12-27 19:17 | XMS_ITS | Continuity of Care Document ---
Author Organization [facility] Address [address] [facility] [address] [place] [address] Phone Care Team Providers Care Industrial Maintenance Repairer Helper Name Role Phone Oracio Mac MD Unavailable Unavailable Advance Directives Directive Yes / No Effective Date File Name No Information Encounters Encounter Description Practice Location Reason(s) For Visit Diagnoses Date Provider Providers Copied on Encounter [facility], [address] [facility] [address], [place], [place], [id number], [place] tel:[phone] [facility] No Information 2 Estefania Narayanan. [address] [facility], [place], [address], [place]. tel:[phone] Family History Family Member Type Diagnosis Age At Onset No Information Payers Payer name Insurance type Covered green party ID Authoriza tion(s) No Information Social [...]
--- OUTSIDE RECORDS SUMMARY | 2024-12-27 19:18 | XMS_ITS | Encounter Summary ---
Author Organization [facility] Facility Care Team Providers Care Manager Of Change Name Role Phone Jinny Sam MD Primary Care Provider [phone] Yanet Westfall MD Unavailable [phone] Alma Francisco MD Unavailable [phone] Jacquelin Holden MD Unavailable [phone] Horace Zapien MD Unavailable [phone] Jenny Gary NP Primary Care Provider [phone] Yoel Villatoro Primary Care Provider + [phone] Jinny Sam MD Primary Care Provider [phone] Encounter Details Date Type Department Care Team (Latest Contact Info) Description 07/19/2018 Orders Only [facility] CLINCONV ProviderJaye MD [address] [place] [address] Social History Tobacco Use Types Packs/Day Years Used Date Smoking Tobacco: Never Assessed Comments Unknown Sex and Gender Information Value Date Recorded Sex Assigned at Not on file Legal Sex Female 11:22 PM MANUFACTURING BAKER Gender Identity Female 07/22/2018 2:36 PM MANUFACTURING BAKER Sexual Orientation Not on file documented as of this encounter Plan of Treatment Not on file documented as of this encounter Procedures Procedure Name Priority Date/Time Associated Diagnosis Comments SCAN - PATHOLOGY 08/06/2018 12:0 0 AM MANUFACTURING BAKER documented in this encounter Results * SCAN - PATHOLOGY (08/06/2018 12:00 AM MANUFACTURING BAKER) Narrative 08/06/2018 12:00 AM MANUFACTURING BAKER Ordered by an unspecified provider. us Historical Provider Final Res ult documented in this encounter Visit Diagnoses Not on filedocumented in this encounter Additional Health Concerns Infection Onset Date Last Indicated Resolved Time Exposure, COVID-19 Comment:Added automatically based on COVID19 lab answers indicating exposure risk 03/15/2020 03/15/2020 03/30/2020 3:05 AM C DT COVID: Suspected 04/18/2020 04/18/2020 04/20/2020 7:51 AM CDT Respiratory Infection (RASHAD), contact + droplet Comment:Automatically added due to negative COVID-19 result. 04/20/2020 04/20/2020 05/04/2020 3:0 5 AM CDT Exposure, COVID-19 Comment:Added automatically based on COVID19 lab answers indicating exposure risk 07/14/2022 07/14/2022 07/24/2022 3:[address] COVID: Suspected 07/14/2022 07/14/2022 07/14/2022 10:25 PM MANUFACTURING BAKER RSV, droplet 07/14/2022 07/14/2022 07/21/2022 3:05 AM MANUFACTURING BAKER documented as of this encounter Care Teams Manager Of Change Relationship Specialty Start Date End Date Jinny Sam MD [address] [place] [id number] PCP - General Internal Medicine 07/22/18 08/30/19 Jenny Gary NP [address] [facility] [place] [address] PCP - General 08/31/19 11/13/19 Yoel Villatoro PA [address] [place] [address] PCP - General Internal Medicine 11/14/19 11/15/19 Jinny Sam MD [address] [address] PCP - General Internal Medicine 11/16/19 Yanet Westfall MD [address] [place] [address] Consulting Physician Pulmonary Disease 04/18/19 Alma Francisco MD [address] [place] [address] Referring Physician Cardiology 04/18/19 Jacquelin Holden MD [address] [facility] [address] [place] [address] Surgeon Surgical Oncology 04/18/19 Horace Zapien MD [address] [facility] [place] [address] Referring Physician Dermatology 04/18/19 documented as of this encounter
--- OUTSIDE RECORDS SUMMARY | 2024-12-27 19:18 | XMS_ITS | Encounter Summary ---
Author Organization [facility] Facility Care Team Providers Care Site Inspector Name Role Phone Jinny Sam MD Primary Care Provider [phone] Yanet Westfall MD Unavailable [phone] Alma Francisco MD Unavailable [phone] Jacquelin Holden MD Unavailable [phone] Horace Zapien MD Unavailable [phone] Jenny Gary NP Primary Care Provider [phone] Yoel Villatoro Primary Care Provider + [phone] Jinny Sam MD Primary Care Provider [phone] Encounter Details Date Type Department Care Team (Latest Contact Info) Description 03/13/2014 Orders Only [facility]G CLINCONV ProviderJaye MD [address] [place] [address] Social History Tobacco Use Types Packs/Day Years Used Date Smoking Tobacco: Never Assessed Comments Unknown Sex and Gender Information Value Date Recorded Sex Assigned at Not on file Legal Sex Female 11:22 PM SECRETARY OF POLICE Gender Identity Female 07/22/2018 2:36 PM SECRETARY OF POLICE Sexual Orientation Not on file documented as of this encounter Plan of Treatment Not on file documented as of this encounter Procedures Procedure Name Priority Date/Time Associated Diagnosis Comments SCAN - LABS 01/01/2016 12:00 AM CDT documented in this encounter Results * SCAN - LABS (01/01/2016 12:00 AM CDT) Narrative 01/01/2016 12:00 AM CDT Ordered by an unspecified provider. us Historical [...] COVID: Suspected 07/14/2022 07/14/2022 07/14/2022 10:25 PM SECRETARY OF POLICE RSV, droplet 07/14/2022 07/14/2022 07/21/2022 3:05 AM SECRETARY OF POLICE documented as of this encounter Care Teams Site Inspector Relationship Specialty Start Date End Date Jinny Sam MD [address] [place] [id number] PCP - General Internal Medicine 07/22/18 08/30/19 Jenny Gary NP [address] [facility] [place] [address] PCP - General 08/31/19 11/13/19 Yoel Villatoro PA [address] [place] [address] PCP - General Internal Medicine 11/14/19 11/15/19 Jinny Sam MD [address] [address] PCP - General Internal Medicine 11/16/19 Yanet Westfall MD [address] [place] [address] Consulting Physician Pulmonary Disease 04/18/19 Alma Francisco MD [address] [facility] [address] [place] [address] Referring Physician Cardiology 04/18/19 Jacquelin Holden MD [address] [facility] [address] [place] [address] Surgeon Surgical Oncology 04/18/19 Horace Zapien MD [address] [facility] [place] [address] Referring Physician Dermatology 04/18/19 documented as of this encounter
--- OUTSIDE RECORDS SUMMARY | 2024-12-27 19:18 | XMS_ITS | Encounter Summary ---
Author Organization [facility] Facility Care Team Providers Care Auto Body Straightener Name Role Phone Jinny Sam MD Primary Care Provider [phone] Yanet Westfall MD Unavailable [phone] Alma Francisco MD Unavailable [phone] Jacquelin Holden MD Unavailable [phone] Horace Zapien MD Unavailable [phone] Jenny Gary NP Primary Care Provider [phone] Yoel Villatoro Primary Care Provider + [phone] Jinny Sam MD Primary Care Provider [phone] Encounter Details Date Type Department Care Team (Latest Contact Info) Description 10/11/2018 Orders Only [facility]G CLINCONV ProviderJaye MD [address] [place] [address] Social History Tobacco Use Types Packs/Day Years Used Date Smoking Tobacco: Never Smokeless Tobacco: Never Alcohol Use Standard Drinks/Week Comments Yes 0 (1 standard drink = 0.6 oz pur e alcohol) socially Comments Unknown Sex and Gender Information Value Date Recorded Sex Assigned at Not on file Legal Sex Female 11:22 PM SILK BLOCKER Gender Identity Female 07/22/2018 2:36 PM SILK BLOCKER Sexual Orientation Not on file documented as of this encounter Plan of Treatment Not on file documented as of this encounter Procedures Procedure Name Priority Date/Time Associated Diagnosis Comments CARDIOLOGY REPORT 10/11/2018 12: 00 AM SILK BLOCKER documented in this encounter Results * CARDIOLOGY REPORT (10/11/2018 12:00 AM SILK BLOCKER) Anatomical Region Laterality Modality Other Narrative 10/11/2018 12:00 AM SILK BLOCKER Ordered by an unspecified provider. us Historical Provider [facility] RHONDA CABRERA Final Result documented in this encounter Visit Diagnoses Not [...] COVID: Suspected 07/14/2022 07/14/2022 07/14/2022 10:25 PM SILK BLOCKER RSV, droplet 07/14/2022 07/14/2022 07/21/2022 3:05 AM SILK BLOCKER documented as of this encounter Care Teams Auto Body Straightener Relationship Specialty Start Date End Date Jinny Sam MD [address] [place] [address] PCP - General Internal Medicine 07/22/18 08/30/19 Jenny Gary NP [facility] [place] [address] PCP - General 08/31/19 11/13/19 Yoel Villatoro PA [address] [place] [address] PCP - General Internal Medicine 11/14/19 11/15/19 Jinny Sam MD [address] [place] [address] PCP - General Internal Medicine 11/16/19 Yanet Westfall MD [address] [place] [address] Consulting Physician Pulmonary Disease 04/18/19 Alma Francisco MD [address] [place] [address] [address] [place] [address] Referring Physician Cardiology 04/18/19 Jacquelin Holden MD [address] [place] [address] 8[address] [place] [address] Surgeon Surgical Oncology 04/18/19 Horace Zapien MD [address] [facility] [place] [address] Referring Physician Dermatology 04/18/19 documented as of this encounter
--- OUTSIDE RECORDS SUMMARY | 2024-12-27 19:18 | XMS_ITS | Encounter Summary ---
Author Organization [facility] Facility Care Team Providers Care Biochemical Development Engineer Name Role Phone Jinny Sam MD Primary Care Provider [phone] Yanet Westfall MD Unavailable [phone] Alma Francisco MD Unavailable [phone] Jacquelin Holden MD Unavailable [phone] Horace Zapien MD Unavailable [phone] Jenny Gary NP Primary Care Provider [phone] Yoel Villatoro Primary Care Provider + [phone] Jinny Sam MD Primary Care Provider [phone] Encounter Details Date Type Department Care Team (Latest Contact Info) Description 09/08/2016 Orders Only MMG CLINCONV ProviderJaye MD [address] [place] [address] Social History Tobacco Use Types Packs/Day Years Used Date Smoking Tobacco: Never Assessed Comments Unknown Sex and Gender Information Value Date Recorded Sex Assigned at Not on file Legal Sex Female 11:22 PM RAILROAD BAGGAGE PORTER Gender Identity Female 07/22/2018 2:36 PM RAILROAD BAGGAGE PORTER Sexual Orientation Not on file documented as of this encounter Plan of Treatment Not on file documented as of this encounter Procedures Procedure Name Priority Date/Time Associated Diagnosis Comments COLONOSCOPY - SCAN 09/08/2016 12 :00 AM RAILROAD BAGGAGE PORTER documented in this encounter Results * COLONOSCOPY - SCAN (09/08/2016 12:00 AM RAILROAD BAGGAGE PORTER) Narrative 09/08/2016 12:00 AM RAILROAD BAGGAGE PORTER Ordered by an unspecified provider. us Historical Provider MD Final Res ult documented in this encounter [...] COVID: Suspected 07/14/2022 07/14/2022 07/14/2022 10:25 PM RAILROAD BAGGAGE PORTER RSV, droplet 07/14/2022 07/14/2022 07/21/2022 3:05 AM RAILROAD BAGGAGE PORTER documented as of this encounter Care Teams Biochemical Development Engineer Relationship Specialty Start Date End Date Jinny Sam MD [address] [place] [address] PCP - General Internal Medicine 07/22/18 08/30/19 Jenny Gary NP [address] [facility] [place] [address] PCP - General 08/31/19 11/13/19 Yoel Villatoro PA [address] [place] [address] PCP - General Internal Medicine 11/14/19 11/15/19 Jinny Sam MD [address] [address] PCP - General Internal Medicine 11/16/19 Yanet Westfall MD [address] [place] [address] Consulting Physician Pulmonary Disease 04/18/19 Alma Francisco MD [address] [place] [address] Referring Physician Cardiology 04/18/19 Jacquelin Holden MD [address] [facility] [address] [place] [address] Surgeon Surgical Oncology 04/18/19 Horace Zapien MD [address] [place] [address] Referring Physician Dermatology 04/18/19 documented as of this encounter
--- OUTSIDE RECORDS SUMMARY | 2024-12-27 19:18 | XMS_ITS | Encounter Summary ---
Author Organization [facility] Facility Care Team Providers Care Parole Director Name Role Phone Jinny Sam MD Primary Care Provider [phone] Yanet Westfall MD Unavailable [phone] Alma Francisco MD Unavailable [phone] Jacquelin Holden MD Unavailable [phone] Horace Zapien MD Unavailable [phone] Jenny Gary NP Primary Care Provider [phone] Yoel Villatoro Primary Care Provider + [phone] Jinny Sam MD Primary Care Provider [phone] Encounter Details Date Type Department Care Team (Latest Contact Info) Description 12/14/2017 Orders Only MMG CLINCONV ProviderJaye MD [address] [place] [address] Social History Tobacco Use Types Packs/Day Years Used Date Smoking Tobacco: Never Assessed Comments Unknown Sex and Gender Information Value Date Recorded Sex Assigned at Not on file Legal Sex Female 11:22 PM RETAIL CUSTODIAL ASSOCIATE Gender Identity Female 07/22/2018 2:36 PM RETAIL CUSTODIAL ASSOCIATE Sexual Orientation Not on file documented as of this encounter Plan of Treatment Not on file documented as of this encounter Procedures Procedure Name Priority Date/Time Associated Diagnosis Comments SCAN - LABS 12/24/2017 12:00 AM CDT CARDIOLOGY REPORT 12/24/2017 12: 00 AM CDT documented in this encounter Results * SCAN - LABS (12/24/2017 12:00 AM CDT) Narrative 12/24/2017 12:00 AM CDT Ordered by an unspecified provider. us Historical Provider Final Res ult * CARDIOLOGY REPORT (12/24/2017 12:00 AM CDT) Anatomical Region Laterality Modality Other Narrative 12/24/2017 12:00 AM CDT Ordered by an unspecified provider. us Historical Provider [facility] PROCE DEBORAH Final Result documented in this encounter Visit [...] COVID: Suspected 07/14/2022 07/14/2022 07/14/2022 10:25 PM RETAIL CUSTODIAL ASSOCIATE RSV, droplet 07/14/2022 07/14/2022 07/21/2022 3:05 AM RETAIL CUSTODIAL ASSOCIATE documented as of this encounter Care Teams Parole Director Relationship Specialty Start Date End Date Jinny Sam MD [address] [place] [address] PCP - General Internal Medicine 07/22/18 08/30/19 Jenny Gary NP [address] [place] [address] PCP - General 08/31/19 11/13/19 Yoel Villatoro PA [address] [place] [address] PCP - General Internal Medicine 11/14/19 11/15/19 Jinny Sam MD [address] [place] [address] PCP - General Internal Medicine 11/16/19 Yanet Westfall MD [address] [place] [address] Consulting Physician Pulmonary Disease 04/18/19 Alma Francisco MD [address] [place], [place] [address] Referring Physician Cardiology 04/18/19 Jacquelin Holden MD [facility] [facility] [address] [place] [address] Surgeon Surgical Oncology 04/18/19 Horace Zapien MD [address] [place] [address] Referring Physician Dermatology 04/18/19 documented as of this encounter
[2024-12-27 19:19] VITALS: BP 154/83; PULSE 83; RESP 20; TEMP 36.6; O2SAT 97
[2024-12-27 20:32] LABS: Basophils Absolute Auto 0.1 K/mm3 (0.0-0.1); Basophils Percent Auto 0.6 % (0.2-1.2); Eosinophils Absolute Auto 0.2 K/mm3 (0-0.3); Eosinophils Percent Auto 2.6 % (0-4.4); Hematocrit 36.5 % (37.0-47.0); Hemoglobin 12.1 g/dL (12.0-15.0); Immature Granulocyte Absolute 0.03 K/mm3 (0.00-0.031); Immature Granulocyte Percent A 0.4 % (0-0.5); Lymphocytes Absolute Auto 2.13 K/mm3 (0.9-3.2); Lymphocytes Percent Auto 25.3 % (18.3-44.2); Mean Corpuscular HGB Conc 33.2 g/dl (32-36); Mean Corpuscular Hemoglobin 29.4 pg (26-34); Mean Corpuscular Volume 88.6 fl (80-100); Mean Platelet Volume 9.9 fl (7.4-10.4); Monocytes Absolute Auto 0.6 K/mm3 (0.1-0.6); Monocytes Percent Auto 7.6 % (2.6-8.5); Neutrophils Absolute Auto 5.4 K/mm3 (1.3-6.7); Neutrophils Percent Auto 63.5 % (45.5-73.1); Platelet Count Result 261 k/mm3 (150-375); Red Blood Count 4.12 M/mm3 (4.2-5.4); Red Cell Distribution Width 12.4 % (11.5-14.5); White Blood Count 8.4 K/mm3 (4.5-10.0)
[2024-12-27 20:38] LABS: Alanine Aminotransferase 29 U/L (6-35); Albumin Level 4.7 g/dL (3.5-5.1); Alkaline Phosphatase 106 U/L (38-126); Anion Gap 8 mmol/L (4-12); Aspartate Amino Transferase 36 U/L (14-36); Bilirubin,Total 0.6 mg/dL (0.2-1.3); Blood Urea Nitrogen 16 mg/dL (7-17); Calcium 9.7 mg/dL (8.4-10.2); Carbon Dioxide 25 mmol/L (22-30); Chloride 106 mmol/L (98-107); Estimated CRCL calculation 55 ml/min; Estimated Glomerular Filt Rate 54; Glucose 118 mg/dL (65-110); Lipase 243 U/L (23-300); Potassium 4.1 mmol/L (3.4-5.0); Sodium 139 mmol/L (137-145)
--- OUTSIDE RECORDS SUMMARY | 2024-12-27 21:53 | XMS_ITS | Continuity of Care Document ---
Author Organization [facility] Address [address] [facility] [address] [place] [address] Phone Care Team Providers Care Licensed Mental Health Professional Name Role Phone Oracio Mac MD Unavailable Unavailable Advance Directives Directive Yes / No Effective Date File Name No Information Encounters Encounter Description Practice Location Reason(s) For Visit Diagnoses Date Provider Providers Copied on Encounter [facility], [address] [facility] [address], [place], [place], [id number], [place] tel:[phone] [facility] No Information 2 Estefania Narayanan. [address] [facility], [place], [address], [place]. tel:[phone] Family History Family Member Type Diagnosis Age [...]
--- OUTSIDE RECORDS SUMMARY | 2024-12-27 21:53 | XMS_ITS | Continuity of Care Document ---
Author Organization formerly [facility] Address [address] [place] [address] [address] [place] [address] Phone Care Team Providers Care Early Childhood Education Worker Name Role Phone Easley OD, Michele Unavailable Unavailable Advance Directives Directive Yes / No Effective Date File Name No Information Encounters Encounter Description Practice Location Reason(s) For Visit Diagnoses Date Provider Providers Copied on Encounter [facility], [address] [place] [address] [address], [place], [place], [address], [place] tel:[phone] [facility] No Information 1-200 2 Easley OD Michele. [address] , [address], [place], [address], [place]. tel:[phone] Family History Family Member Type Diagnosis Age At Onset No Information Payers Payer name Insurance type Covered democrat ID Authoriza tion(s) No Information Social History [...]
--- OUTSIDE RECORDS SUMMARY | 2024-12-27 21:53 | XMS_ITS | Encounter Summary ---
Author Organization [facility] Facility Care Team Providers Care Chapter Relations Administrator Name Role Phone Jinny Sam MD Primary Care Provider [phone] Yanet Westfall MD Unavailable [phone] Alma Francisco MD Unavailable [phone] Jacquelin Holden MD Unavailable [phone] Horace Zapien MD Unavailable [phone] Jenny Gary NP Primary Care Provider [phone] Yoel Villatoro Primary Care Provider + [phone] Jinny Sam MD Primary Care Provider [phone] Encounter Details Date Type Department Care Team (Latest Contact Info) Description 09/08/2016 Orders Only [facility]G CLINCONV ProviderJaye MD [address] [place] [address] Social History Tobacco Use Types Packs/Day Years Used Date Smoking Tobacco: Never Assessed Comments Unknown Sex and Gender Information Value Date Recorded Sex Assigned at Not on file Legal Sex Female 11:22 PM PRINTER SMALL PRINT SHOP Gender Identity Female 07/22/2018 2:36 PM PRINTER SMALL PRINT SHOP Sexual Orientation Not on file documented as of this encounter Plan of Treatment Not on file documented as of this encounter Procedures Procedure Name Priority Date/Time Associated Diagnosis Comments COLONOSCOPY - SCAN 09/08/2016 12 :00 AM PRINTER SMALL PRINT SHOP documented in this encounter Results * COLONOSCOPY - SCAN (09/08/2016 12:00 AM PRINTER SMALL PRINT SHOP) Narrative 09/08/2016 12:00 AM PRINTER SMALL PRINT SHOP Ordered by an unspecified provider. us Historical [...] COVID: Suspected 07/14/2022 07/14/2022 07/14/2022 10:25 PM PRINTER SMALL PRINT SHOP RSV, droplet 07/14/2022 07/14/2022 07/21/2022 3:05 AM PRINTER SMALL PRINT SHOP documented as of this encounter Care Teams Chapter Relations Administrator Relationship Specialty Start Date End Date Jinny Sam MD [address] [place] [address] PCP - General Internal Medicine 07/22/18 08/30/19 Jenny Gary NP [address] [facility] [place] [address] PCP - General 08/31/19 11/13/19 Yoel Villatoro PA [address] [place] [address] PCP - General Internal Medicine 11/14/19 11/15/19 Jinny Sam MD [address] [address] PCP - General Internal Medicine 11/16/19 Yanet Westfall MD [address] [place] [address] Consulting Physician Pulmonary Disease 04/18/19 Alma Francisco MD [address] [place] [address] Referring Physician Cardiology 04/18/19 Jacquelin Holden MD [address] [facility] [facility] [address] [place] [address] Surgeon Surgical Oncology 04/18/19 Horace Zapien MD [address] [facility] [place] [address] Referring Physician Dermatology 04/18/19 documented as of this encounter
--- OUTSIDE RECORDS SUMMARY | 2024-12-27 21:53 | XMS_ITS | Encounter Summary ---
Author Organization [facility] Facility Care Team Providers Care Power Tong Operator Name Role Phone Jinny Sam MD Primary Care Provider [phone] Yanet Westfall MD Unavailable [phone] Alma Francisco MD Unavailable [phone] Jacquelin Holden MD Unavailable [phone] Horace Zapien MD Unavailable [phone] Jenny Gary NP Primary Care Provider [phone] Yoel Villatoro Primary Care Provider + [phone] Jinny Sam MD Primary Care Provider [phone] Encounter Details Date Type Department Care Team (Latest Contact Info) Description 10/11/2018 Orders Only [facility] CLINCONV ProviderJaye MD [address] [place] [address] Social History Tobacco Use Types Packs/Day Years Used Date Smoking Tobacco: Never Smokeless Tobacco: Never Alcohol Use Standard Drinks/Week Comments Yes 0 (1 standard drink = 0.6 oz pur e alcohol) socially Comments Unknown Sex and Gender Information Value Date Recorded Sex Assigned at Not on file Legal Sex Female 11:22 PM SHOE REPAIRER HELPER Gender Identity Female 07/22/2018 2:36 PM SHOE REPAIRER HELPER Sexual Orientation Not on file documented as of this encounter Plan of Treatment Not on file documented as of this encounter Procedures Procedure Name Priority Date/Time Associated Diagnosis Comments CARDIOLOGY REPORT 10/11/2018 12: 00 AM SHOE REPAIRER HELPER documented in this encounter Results * CARDIOLOGY REPORT (10/11/2018 12:00 AM SHOE REPAIRER HELPER) Anatomical Region Laterality Modality Other Narrative 10/11/2018 12:00 AM SHOE REPAIRER HELPER Ordered by an unspecified provider. us Historical [...] COVID: Suspected 07/14/2022 07/14/2022 07/14/2022 10:25 PM SHOE REPAIRER HELPER RSV, droplet 07/14/2022 07/14/2022 07/21/2022 3:05 AM SHOE REPAIRER HELPER documented as of this encounter Care Teams Power Tong Operator Relationship Specialty Start Date End Date Jinny Sam MD [address] [place] [address] PCP - General Internal Medicine 07/22/18 08/30/19 Jenny Gary NP [facility] [facility] [place] [address] PCP - General 08/31/19 11/13/19 Yoel Villatoro PA [address] [place] [address] PCP - General Internal Medicine 11/14/19 11/15/19 Jinny Sam MD [address] [place] [address] PCP - General Internal Medicine 11/16/19 Yanet Westfall MD [address] [place] [address] Consulting Physician Pulmonary Disease 04/18/19 Alma Francisco MD [address] [place] [address] [address] [place] [address] Referring Physician Cardiology 04/18/19 Jacquelin Holden MD [address] [place] [address] [address] [place] [address] Surgeon Surgical Oncology 04/18/19 Horace Zapien MD [address] [place] [address] Referring Physician Dermatology 04/18/19 documented as of this encounter
--- OUTSIDE RECORDS SUMMARY | 2024-12-27 21:53 | XMS_ITS | Encounter Summary ---
Author Organization [facility] Facility Care Team Providers Care Shade Hanger Name Role Phone Jinny Sam MD Primary Care Provider [phone] Yanet Westfall MD Unavailable [phone] Alma Francisco MD Unavailable [phone] Jacquelin Holden MD Unavailable [phone] Horace Zapien MD Unavailable [phone] Jenny Gary NP Primary Care Provider [phone] Yoel Villatoro Primary Care Provider + [phone] Jinny Sam MD Primary Care Provider [phone] Encounter Details Date Type Department Care Team (Latest Contact Info) Description 12/14/2017 Orders Only [facility] CLINCONV ProviderJaye MD [address] [place] [address] Social History Tobacco Use Types Packs/Day Years Used Date Smoking Tobacco: Never Assessed Comments Unknown Sex and Gender Information Value Date Recorded Sex Assigned at Not on file Legal Sex Female 11:22 PM TECHNICAL ILLUSTRATIONS MAP INKER Gender Identity Female 07/22/2018 2:36 PM TECHNICAL ILLUSTRATIONS MAP INKER Sexual Orientation Not on file documented as [...] COVID: Suspected 07/14/2022 07/14/2022 07/14/2022 10:25 PM TECHNICAL ILLUSTRATIONS MAP INKER RSV, droplet 07/14/2022 07/14/2022 07/21/2022 3:05 AM TECHNICAL ILLUSTRATIONS MAP INKER documented as of this encounter Care Teams Shade Hanger Relationship Specialty Start Date End Date Jinny Sam MD [address] [place] [address] PCP - General Internal Medicine 07/22/18 08/30/19 Jenny Gary NP [address] [facility] [place] [address] PCP - General 08/31/19 11/13/19 Yoel Villatoro PA [address] [place] [address] PCP - General Internal Medicine 11/14/19 11/15/19 Jinny Sam MD [address] [place] [address] PCP - General Internal Medicine 11/16/19 Yanet Westfall MD [address] [place] [address] Consulting Physician Pulmonary Disease 04/18/19 Alma Francisco MD [address] [place], [place] [address] Referring Physician Cardiology 04/18/19 Jacquelin Holden MD [facility] [address] [place] [address] Surgeon Surgical Oncology 04/18/19 Horace Zapien MD [address] [place] [address] Referring Physician Dermatology 04/18/19 documented as of this encounter
--- OUTSIDE RECORDS SUMMARY | 2024-12-27 21:53 | XMS_ITS | Clinical Summary ---
Author Organization [facility] Address [address] [place] [id number] Care Team Providers Care Personnel Associate Name Role Phone Yanet Westfall MD Unavailable [phone] Alma Francisco MD Unavailable [phone] Jacquelin Holden MD Unavailable [phone] Horace Zapien MD Unavailable [phone] Jinny Sam MD Primary Care Provider [phone] Allergies Active Allergy Reactions Criticality Noted Date [...] Plan (12/07/2024 4:58 PM CDT): Seen by outside solar sales consultant at [facility] told she has grade 1 prolapse of [...] I have ordered a mask and filters. [facility] Assessment & Plan (04/07/2023 1:30 PM CDT): The patient is reluctant to use the [employer] auto SV BiPAP unit because she has seen dust particles in the humidifier. She has not received a replacement unit and she did register with [employer] in 2020. Her current unit is 4 years old. I did ask her to contact her private insurance company to see if they would be willing to pay for a new [employer] auto SV BiPAP unit. I also requested that she contact [employer] [facility] [employer] again and see when she might receive [...] maintenance. Assessment & Plan (09/30/2022 7:54 AM SHIPPER RECEIVER): covid bivalent booster due Colonoscopy due, schedule [...] and establishing or updating healthcare power of prosecuting attorney document and providing our office with a copy. Assessment & Plan (07/10/2021 1:09 PM SHIPPER RECEIVER): Reviewed previous labs and diagnostic test results. [...] maintenance. Assessment & Plan (06/13/2020 3:04 PM SHIPPER RECEIVER): Wear sunscreen with SPF over 50 while [...] please contact the office. I strongly encourage [email or web address] sign ups. It can facilitate communication flow. [...] calories Assessment & Plan (09/30/2022 3:34 PM SHIPPER RECEIVER): Work on attempts to lose weight about [...] loss Assessment & Plan (07/10/2021 1:11 PM SHIPPER RECEIVER): Work on wt loss Exercise 4-5 d a week for 45-60 mins a day to lose weight, burn calories No sugar diet Assessment & Plan (02/13/2021 3:56 PM CDT): Patient to call insurance plan and inquire if [employer] or [employer] are covered for weight loss for BMI 31.14, HTN, Pre DM, central sleep apnea Assessment & Plan (06/13/2020 3:36 PM SHIPPER RECEIVER): Work on wt loss Exercise regularly Lose [...] reflux Assessment & Plan (06/13/2020 3:30 PM SHIPPER RECEIVER): Cont on prilosec 40mg 2x a day, [...] 5.7 Assessment & Plan (09/30/2022 3:51 PM SHIPPER RECEIVER): Better, tolerating metformin Cont same one nightly [...] diet Assessment & Plan (07/10/2021 1:12 PM SHIPPER RECEIVER): Remains at risk for DM BMI over [...] basis. Assessment & Plan (06/13/2020 6:16 PM SHIPPER RECEIVER): At risk for DM a1c today is [...] diet Assessment & Plan (09/30/2022 3:52 PM SHIPPER RECEIVER): Improving Cont statin low dose Low chol diet Assessment & Plan (01/09/2022 3:21 PM CDT): Cont low chol diet Cont statin therapy Assessment & Plan (07/10/2021 1:13 PM SHIPPER RECEIVER): Numbers could be better, LDL goal under [...] regimen. Assessment & Plan (06/13/2020 3:44 PM SHIPPER RECEIVER): Follow low chol diet Cont crestor therapy [...] regularly Assessment & Plan (09/30/2022 3:52 PM SHIPPER RECEIVER): Stable Cont same arb dose and hctz Cont wt loss exercise Assessment & Plan (01/09/2022 3:21 PM CDT): Ff low sodium diet Exercise in the water or ride a stationary bike Assessment & Plan (07/10/2021 3:35 PM SHIPPER RECEIVER): ECHO 2020, normal Dr Francisco bp controlled [...] stable. Assessment & Plan (06/13/2020 3:41 PM SHIPPER RECEIVER): Controlled Cont same regimen Assessment & Plan [...] on 06/12/2023 Most recent EKG 03/23/2023 at [facility] in chart Do not take any meds morning of surgery Avoid mvi 7 d before surgery Do not take advil/ibuprofen/motrin/aspirin within 7 days of surgery Acute viral syndrome 11/16/2019 020 Assessment & Plan (04/18/2020 8:55 AM CDT): Considering recent trip to [place], need to r/o covid Suggest rest, tylenol [...] productive cough, lethargy, rash etc. Call office, [facility] covid call center or go to the [...] specialist Assessment & Plan (06/13/2020 3:25 PM SHIPPER RECEIVER): Compliant with BiPap Stable Dr Westfall Assessment [...] Type Department Care Team Description 12/23/2024 Telephone [facility] Obstetrics and Gynecology [address] [place] [address] Rahel Feldman Scheduling Appointments 12/07/2024 3:30 PM CDT Office Visit [facility] [address] [place] [phone] Jinny Sam MD Annual physical exam (Primary Dx); Class 1 obesity due to excess calories with serious comorbidity and body mass index (BMI) of 30.0 to 30.9 in adult; Abnormal glucose; Essential hypertension; Myalgia; Pure hypercholesterolemia; Anxiety with depression; Transaminitis; Bladder prolapse, female, acquired 11/28/2024 Results Follow-Up [address] [address] Jinny Sam MD Urinalysis reflex to microscopic and culture Urine, clean voided 11/27/2024 Results Follow-Up [address] [address] Jinny Sam MD CBC with auto differential, Comprehensive metabolic panel, Lipid panel, Additional followed-up results: 5 11/23/2024 3:[address] 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 file Not on file Not on file [employer]oom [employer] Not on file Not on file Not on file Obstetrics History Last Filed Vital Signs Vital Sign Reading Time Taken Comments Blood Pressure 132/82 12/07/2024 3:36 PM CDT Pulse 74 12/07/2024 3:36 PM CDT Temperature 36.2 C (97.2 F) 12/07/2024 3:36 PM CDT Respiratory Rate 18 08/12/2024 12:5 0 PM SHIPPER RECEIVER Oxygen Saturation 95% 12/07/2024 3:36 PM CDT [...] 08/12/2024, 04/01/2012 Medical Devices Implanted Type Area Terrapin Fisher Device Identifier Shelf Expiration Date Model / Serial / Lot Left Foot Surgery ([place]) Left: Foot Procedures Procedure Name Priority Date/Time [...] CDT Urethral pain COLONOSCOPY 08/12/2024 12:07 PM SHIPPER RECEIVER SCREENING MAMMOGRAM BILATERAL W ARTUR Schedule Routine, Read Routine (OP Routine) 02/26/2024 11:02 AM CDT Screening mammogram, encounter for HM PAP SMEAR WITH HPV Routine 11/11/2018 HM HEPATITIS C SCREENING Routine 05/26/2017 from Last 3 Months or Most Recently Relevant to Health Maintenance Results * REFLEXIVE URINE CULTURE (11/25/2024 8:38 AM CDT) Urine culture [facility] Comment:NO CULTURE INDICATED 11/25/2024 8:38 AM CDT 11/25/2024 8:41 AM CDT Narrative [facility] - 11/26/2024 7:01 AM CDT FASTING:YES FASTING: YES us Jinny Sam MD LAB MICROBIOLOGY - GENERAL O RDERABLES Final Result [facility] [address] [place] [address] * Thyroid Function Refugio (11/25/2024 8:38 AM CDT) TSH 2.23 0.40 - 4.50 mIU/L [facility] Blood 11/25/2024 8:38 AM CDT 11/25/2024 8:41 AM CDT Narrative [facility] - 11/26/2024 7:01 AM CDT FASTING:YES FASTING: YES us Jinny Sam MD LAB BLOOD ORDERABLES Final R esult [facility] [address] [place] [address] * Urinalysis reflex to microscopic and culture Urine, clean voided (11/25/2024 8:38 AM CDT) Color, ur YELLOW YELLOW [facility] Appearance, ur CLEAR CLEAR [facility] Specific gravity 1.009 1.001 - 1.035 [facility] pH, ur < OR = 5.0 5.0 - 8.0 [facility] Glucose, ur NEGATIVE NEGATIVE [facility] Bilirubin, ur NEGATIVE NEGATIVE [facility] Ketones, ur NEGATIVE NEGATIVE [facility] Blood, ur NEGATIVE NEGATIVE [facility] Protein, ur, quant NEGATIVE NEGATIVE [facility] Nitrites, ur NEGATIVE NEGATIVE [facility] Leukocyte esterase, ur NEGATIVE NEGATIVE [facility] WBC, ur NONE SEEN < OR = 5 /HPF [facility] RBC, ur NONE SEEN < OR = 2 /HPF [facility] Epithelial cells, squamous, ur NONE SEEN < OR = 5 /HPF [facility] Bacteria, ur, quant NONE SEEN NONE SEEN /HPF [facility] Hyaline cast NONE SEEN NONE SEEN /LPF [facility] Note [facility] Comment: This urine was analyzed for the presence of WBC, RBC, bacteria, casts, and other formed elements. Only those elements seen were reported. Urine, clean voided 11/25/2024 8:38 AM CDT 11/25/2024 8:41 AM CDT Narrative [facility] - 11/26/2024 7:01 AM CDT FASTING:YES FASTING: YES us Jinny Sam MD LAB MICROBIOLOGY - GENERAL O RDERABLES Final Result [facility] [address] [place] [address] * (ABNORMAL) CBC with auto differential (11/25/2024 [...] BLOOD ORDERABLES Final R esult [facility] [address] [place] [address] * Albumin Creatinine Ratio, Urine (11/25/2024 8:38 AM CDT) Creatinine, ur 42 20 - 275 mg/dL [facility] Microalbumin, ur 0.3 See Note: mg/dL [...] MD LAB URINE ORDERABLES Final R esult [facility] [address] [place] [address] * Hemoglobin A1c (11/25/2024 8:38 AM CDT) Hgb A1C 5.5 <5.7 % of total Hgb [facility] Comment: For the purpose of screening for the presence of diabetes: <5.7% Consistent with the absence of diabetes 5.7-6.4% Consistent with increased risk for diabetes (prediabetes) > or =6.5% Consistent with diabetes This assay result is consistent with a decreased risk of diabetes. Currently, no consensus exists regarding use of hemoglobin A1c for diagnosis of diabetes in children. According to [place] Diabetes Association (ADA) guidelines, hemoglobin A1c <7.0% represents optimal control in non- diabetic patients. Different metrics may apply to specific patient populations. Standards of Medical Care in Diabetes(ADA). Blood 11/25/2024 8:38 AM CDT 11/25/2024 8:41 AM CDT Narrative [facility] - 11/26/2024 7:01 AM CDT FASTING:YES FASTING: YES us Jinny Sam MD LAB BLOOD ORDERABLES Final R esult [facility] [address] [place] [address] * (ABNORMAL) Lipid panel (11/25/2024 8:38 AM CDT) [facility] Cholesterol 228(H) <200 mg/dL [facility] HDL 53 > OR = 50 mg/dL [facility] Triglycerides 226(H) <150 mg/dL [facility] Comment: If a non-fasting specimen was collected, consider repeat triglyceride testing on a fasting specimen if clinically indicated. Pb et al. J. of Clin. Lipidol. 2015;9:129-169. LDL 139(H) mg/dL (calc) [facility] Comment: Reference range: <100 Desirable range <100 mg/dL for primary prevention; <70 mg/dL for patients with CHD or diabetic patients with > or = 2 CHD risk factors. LDL-C is now calculated using the Emilio-Almazan calculation, which is a validated novel method providing better accuracy than the Friedewald equation in the estimation of LDL-C. Emilio SS et al. FRANKIE. 2013;310(19): 1756-9356 (http://education.Ultracell/faq/QUE673) Chol/HDL ratio 4.3 <5.0 (calc) [facility] Non-HDL, (LDL+VLDL) 175(H) <130 mg/dL (calc) [facility] Comment: For patients with diabetes plus 1 major ASCVD risk factor, treating to a non-HDL-C goal of <100 mg/dL (LDL-C of <70 mg/dL) is considered a therapeutic option. Blood 11/25/2024 8:38 AM CDT 11/25/2024 8:41 AM CDT Narrative [facility] - 11/26/2024 7:01 AM CDT FASTING:YES FASTING: YES us Jinny Sam MD LAB BLOOD ORDERABLES Final R esult [facility] [address] [place] [address] * (ABNORMAL) Comprehensive metabolic panel (11/25/2024 8:38 AM CDT) Glucose 109(H) 65 - 99 mg/dL [facility] Comment: Fasting reference interval For someone without known diabetes, a glucose value between 100 and 125 mg/dL is consistent with prediabetes and should be confirmed with a follow-up test. BUN 20 7 - 25 mg/dL [facility] Creatinine 0.82 0.50 - 1.05 mg/dL [facility] eGFR 80 > OR = 60 mL/min/1.7 3m2 [facility] BUN/creat ratio SEE NOTE: 6 - 22 (calc) [facility] Comment: Not Reported: BUN and Creatinine are within reference range. Sodium 132(L) 135 - 146 mmol/L [facility] Potassium, pl 4.3 3.5 - 5.3 mmol/L [facility] Chloride 101 98 - 110 mmol/L [facility] CO2 23 20 - 32 mmol/L [facility] Calcium 9.6 8.6 - 10.4 mg/dL [facility] Protein, sr 6.7 6.1 - 8.1 g/dL [facility] Albumin 4.6 3.6 - 5.1 g/dL [facility] GLOBULIN 2.1 1.9 - 3.7 g/dL (calc) [facility] Alb/glob ratio 2.2 1.0 - 2.5 (calc) [facility] Bilirubin, total 1.0 0.2 - 1.2 mg/dL [facility] Alk phos 103 37 - 153 U/L [facility] AST 56(H) 10 - 35 U/L [facility] ALT (SGPT) 44(H) 6 - 29 U/L [facility] Blood 11/25/2024 8:38 AM CDT 11/25/2024 8:41 AM CDT Narrative [facility] - 11/26/2024 7:01 AM CDT FASTING:YES FASTING: YES us Jinny Sam MD LAB BLOOD ORDERABLES Final R esult [facility] [address] [place] [address] * Urinalysis reflex to microscopic and culture Urine, clean voided (11/23/2024 3:52 PM CDT) Color, ur St[facility] Comment:Testing performed by : [address] [address] Clarity, ur Clear Clear SHANIKA Comment:Testing performed by : [address] [address] Specific gravity, ur 1.005 1.003 - 1.030 SHANIKA Comment:Testing performed by : [address] [address] pH, urine 6.5 SHANIKA Comment: Interpretive Data U rine pH is affected by diet, medications, systemic acid-base disturbances, and renal tubular function. pH may affect urinary stone formation. For example, urine pH below 6.0 may help reduce the tendency for calcium phosphate stones and pH greater than 6.0 may reduce the tendency for uric acid stone formation. Source: [employer] Current Interpretive Data was last revised on 2017 Testing performed by: [address] [address] Protein, ur ql Negative Negative SHANIKA Comment:Testing performed by : [address] [address] Glucose, ur ql Negative Negative SHANIKA Comment:Testing performed by : [address] [address] Ketones, ur Negative Negative SHANIKA Comment:Testing performed by : [address] [address] Bilirubin, ur Negative Negative SHANIKA Comment:Testing performed by : [facility], [address] [place] [address], [place]., [address] Blood, ur Negative Negative SHANIKA Comment:Testing performed by : [facility], [address] [place] [address], [place]., [address] Urobilinogen, ur <2.0 <2.0 mg/dL SHANIKA Comment:Testing performed by : [address], [place]., [address] Nitrite, ur Negative Negative SHANIKA Comment:Testing performed by : [address], [place]., [address] Leukocyte esterase, ur Negative Negative SHANIKA Comment:Testing performed by : [address], [place]., [address] UA reflex comment Reflex conditions for microscopic UA and culture not met. SHANIKA Comment:Testing performed by : [address], [place]., [address] Urine, clean voided 11/23/2024 3:52 PM CDT 11/23/2024 6:53 PM CDT Narrative SHANIKA - 11/23/2024 7:00 PM CDT Urine Collection Method->Clean Catch us Jinny Sam MD LAB MICROBIOLOGY - GENERAL O RDERABLES Final Result [facility] [address] [facility] Department [place] [address] * Colonoscopy (08/12/2024 12:07 PM SHIPPER RECEIVER) Anatomical Region Laterality Modality Other Narrative Procedure Note Mat Benjamin MD - 08/12/2024 12:07 PM CST [facility] GI ENDOSCOPY Patient Name: Samara Bethea Procedure Date: 08/12/2024 12:07 PM Date of : 1960 Admit Type: Outpatient Age: 63 Gender: Female Attending MD: Mat Benjamin MD Room: [facility] ENDOSCOPY ROOM 04 Note Status: Finalized Procedure: [...] The scope was passed under direct vision.The CF-SD631H colonoscope was introduced through theanus and advanced [...] On: 08/12/2024 12:07 PM Recognized by the [place] [employer] for Gastrointestinal Endoscopy for promoting quality [...] compared to prior imaging studies performed at [facility] on 07/12/2021, 07/29/2021 and 12/01/2022. There are [...] compared to prior imaging studies performed at [facility] on 07/12/2021, 07/29/2021 and 12/01/2022. There are [...] Most Recently Relevant to Health Maintenance Insurance [facility] [place] Care Teams Personnel Associate Relationship Specialty Start Date End Date Jinny Sam MD [address] [place] [address] [address] [place] [address] PCP - General Internal Medicine 11/16/19 Yanet Westfall MD Consulting Physician Pulmonary Disease 04/18/19 Alma Francisco MD [address] [facility] [address] [place] [address] Referring Physician Cardiology 04/18/19 Jacquelin Holden MD [address] [place] [address] Surgeon Surgical Oncology 04/18/19 Horace Zapien MD [address] [facility] [place] [address] Referring Physician Dermatology 04/18/19
--- OUTSIDE RECORDS SUMMARY | 2024-12-27 21:53 | XMS_ITS | Encounter Summary ---
Author Organization [facility] Facility Care Team Providers Care Tape Machine Tailer Name Role Phone Jinny Sam MD Primary Care Provider [phone] Yanet Westfall MD Unavailable [phone] Alma Francisco MD Unavailable [phone] Jacquelin Holden MD Unavailable [phone] Horace Zapien MD Unavailable [phone] Jenny Gary NP Primary Care Provider [phone] Yoel Villatoro Primary Care Provider + [phone] Jinny Sam MD Primary Care Provider [phone] Encounter Details Date Type Department Care Team (Latest Contact Info) Description 03/13/2014 Orders Only [facility] CLINCONV ProviderJaye MD [address] [place] [address] Social History Tobacco Use Types Packs/Day Years Used Date Smoking Tobacco: Never Assessed Comments Unknown Sex and Gender Information Value Date Recorded Sex Assigned at Not on file Legal Sex Female 11:22 PM LOOPING MACHINE OPERATOR Gender Identity Female 07/22/2018 2:36 PM LOOPING MACHINE OPERATOR Sexual Orientation Not on file documented as [...] COVID: Suspected 07/14/2022 07/14/2022 07/14/2022 10:25 PM LOOPING MACHINE OPERATOR RSV, droplet 07/14/2022 07/14/2022 07/21/2022 3:05 AM LOOPING MACHINE OPERATOR documented as of this encounter Care Teams Tape Machine Tailer Relationship Specialty Start Date End Date Jinny Sam MD [address] [place] [address] [id number] PCP - General Internal Medicine 07/22/18 08/30/19 Jenny Gary NP [address] [facility] [place] [address] PCP - General 08/31/19 11/13/19 Yoel Villatoro PA [address] [place] [address] PCP - General Internal Medicine 11/14/19 11/15/19 Jinny Sam MD [address] [address] PCP - General Internal Medicine 11/16/19 Yanet Westfall MD [address] [place] [address] Consulting Physician Pulmonary Disease 04/18/19 Alma Francisco MD 3 [facility] [address] [place] [address] Referring Physician Cardiology 04/18/19 Jacquelin Holden MD [address] [facility] [address] [place] [address] Surgeon Surgical Oncology 04/18/19 Horace Zapien MD [address] [facility]S [facility] [address] [facility] [address] Referring Physician Dermatology 04/18/19 documented as of this encounter
--- OUTSIDE RECORDS SUMMARY | 2024-12-27 21:53 | XMS_ITS | Encounter Summary ---
Author Organization [facility] Healthcare Address [address] [place] [address] Care Team Providers Care Book Jacket Cover Machine Operator Name Role Phone Yanet Westfall MD Unavailable [phone] Alma Francisco MD Unavailable [phone] Jacquelin Holden MD Unavailable [phone] Horace Zapien MD Unavailable [phone] Jinny Sam MD Primary Care Provider [phone] Encounter Details Date Type Department Care Team (Late st Contact Info) Description 11/28/2024 Results Follow-Up [facility] Medical Group Primary Care [address] [place] [phone] Jinny Sam MD [address] [place] [address] Urinalysis reflex to microscopic and culture [...] on file Legal Sex Female 11:22 PM JEWEL LATHE OPERATOR Gender Identity Female 07/22/2018 2:36 PM JEWEL LATHE OPERATOR Sexual Orientation Not on file 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 [address] [place] [address] Surgeon Surgical Oncology 04/18/19 Horace Zapien MD [address] [facility] [place] [address] Referring Physician Dermatology 04/18/19 documented as of this encounter
--- OUTSIDE RECORDS SUMMARY | 2024-12-27 21:53 | XMS_ITS | Referral Summary ---
Author Organization [facility] Address [address] [place] [address] Care Team Providers Care Personal Clothing Laundry Aide Name Role Phone Yanet Westfall MD Unavailable [phone] Alma Francisco MD Unavailable [phone] Jacquelin Holden MD Unavailable [phone] Horace Zapien MD Unavailable [phone] Jinny Sam MD Primary Care Provider [phone] Encounters Date Type Department Care Team Description 12/23/2024 Telephone [facility] Obstetrics and Gynecology [address] [place] [address] Rahel Feldman Scheduling Appointments 12/07/2024 3:30 PM CDT Office Visit [facility] Primary Care [address] [place] [phone] Jinny Sam MD Annual physical exam (Primary Dx); Class 1 obesity due to excess calories with serious comorbidity and body mass index (BMI) of 30.0 to 30.9 in adult; Abnormal glucose; Essential hypertension; Myalgia; Pure hypercholesterolemia; Anxiety with depression; Transaminitis; Bladder prolapse, female, acquired 11/28/2024 Results Follow-Up [facility] Primary Care [address] [place] [phone] Jinny Sam MD Urinalysis reflex to microscopic and culture Urine, clean voided 11/27/2024 Results Follow-Up [facility] Primary Care [address] [place] [phone] Jinny Sam MD CBC with auto differential, Comprehensive metabolic panel, Lipid panel, Additional followed-up results: 5 11/23/2024 3:25 PM CDT Lab [facility] Lab [address] [place] [address] Urethral pain 11/14/2024 Telephone [facility] Primary Care [address] [place] [phone] Jinny Sam MD Exposed to Influenza [...] Plan (12/07/2024 4:58 PM CDT): Seen by leasing manager at [facility] told she has grade 1 prolapse of [...] I have ordered a mask and filters. [facility] Assessment & Plan (04/07/2023 1:30 PM CDT): The patient is reluctant to use the [employer] auto SV BiPAP unit because she has seen dust particles in the humidifier. She has not received a replacement unit and she did register with [employer] in 2020. Her current unit is 4 years old. I did ask her to contact her private insurance company to see if they would be willing to pay for a new [employer] auto SV BiPAP unit. I also requested that she contact [employer] again and see when she might receive [...] maintenance. Assessment & Plan (09/30/2022 7:54 AM SOLARIS ADMINISTRATOR): covid bivalent booster due Colonoscopy due, schedule [...] and establishing or updating healthcare power of claim attorney document and providing our office with a copy. Assessment & Plan (07/10/2021 1:09 PM SOLARIS ADMINISTRATOR): Reviewed previous labs and diagnostic test results. [...] maintenance. Assessment & Plan (06/13/2020 3:04 PM SOLARIS ADMINISTRATOR): Wear sunscreen with SPF over 50 while [...] please contact the office. I strongly encourage [employer] sign ups. It can facilitate communication flow. [...] calories Assessment & Plan (09/30/2022 3:34 PM SOLARIS ADMINISTRATOR): Work on attempts to lose weight about [...] loss Assessment & Plan (07/10/2021 1:11 PM SOLARIS ADMINISTRATOR): Work on wt loss Exercise 4-5 d a week for 45-60 mins a day to lose weight, burn calories No sugar diet Assessment & Plan (02/13/2021 3:56 PM CDT): Patient to call insurance plan and inquire if [employer] or [email or web address] are covered for weight loss for BMI 31.14, HTN, Pre DM, central sleep apnea Assessment & Plan (06/13/2020 3:36 PM SOLARIS ADMINISTRATOR): Work on wt loss Exercise regularly Lose [...] reflux Assessment & Plan (06/13/2020 3:30 PM SOLARIS ADMINISTRATOR): Cont on prilosec 40mg 2x a day, [...] 5.7 Assessment & Plan (09/30/2022 3:51 PM SOLARIS ADMINISTRATOR): Better, tolerating metformin Cont same one nightly [...] diet Assessment & Plan (07/10/2021 1:12 PM SOLARIS ADMINISTRATOR): Remains at risk for DM BMI over [...] basis. Assessment & Plan (06/13/2020 6:16 PM SOLARIS ADMINISTRATOR): At risk for DM a1c today is [...] diet Assessment & Plan (09/30/2022 3:52 PM SOLARIS ADMINISTRATOR): Improving Cont statin low dose Low chol diet Assessment & Plan (01/09/2022 3:21 PM CDT): Cont low chol diet Cont statin therapy Assessment & Plan (07/10/2021 1:13 PM SOLARIS ADMINISTRATOR): Numbers could be better, LDL goal under [...] regimen. Assessment & Plan (06/13/2020 3:44 PM SOLARIS ADMINISTRATOR): Follow low chol diet Cont crestor therapy [...] regularly Assessment & Plan (09/30/2022 3:52 PM SOLARIS ADMINISTRATOR): Stable Cont same arb dose and hctz Cont wt loss exercise Assessment & Plan (01/09/2022 3:21 PM CDT): Ff low sodium diet Exercise in the water or ride a stationary bike Assessment & Plan (07/10/2021 3:35 PM SOLARIS ADMINISTRATOR): ECHO 2020, normal Dr Maryam bp controlled [...] stable. Assessment & Plan (06/13/2020 3:41 PM SOLARIS ADMINISTRATOR): Controlled Cont same regimen Assessment & Plan [...] on 06/12/2023 Most recent EKG 03/23/2023 at [facility] in chart Do not take any meds morning of surgery Avoid mvi 7 d before surgery Do not take advil/ibuprofen/motrin/aspirin within 7 days of surgery Acute viral syndrome 11/16/2019 020 Assessment & Plan (04/18/2020 8:55 AM CDT): Considering recent trip to [place], need to r/o covid Suggest rest, tylenol [...] productive cough, lethargy, rash etc. 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 Not on file Not on file Last Filed Vital Signs Vital Sign Reading Time Taken Comments Blood Pressure 132/82 12/07/2024 3:36 PM CDT Pulse 74 12/07/2024 3:36 PM CDT Temperature 36.2 C (97.2 F) 12/07/2024 3:36 PM CDT Respiratory Rate 18 08/12/2024 12:5 0 PM SOLARIS ADMINISTRATOR Oxygen Saturation 95% 12/07/2024 3:36 PM CDT Inhaled Oxygen Concentration - - Weight 89.7 kg (197 lb 12.8 oz) 12/07/2024 3:36 PM CDT Height 170.2 cm (5' 7 ) 12/07/2024 3:36 PM CDT Body Mass Index 30.98 12/07/2024 3:36 PM CDT Plan of Treatment Not on file Medical Devices Implanted Type Area Construction Trades Teacher Device Identifier Shelf Expiration Date Model / Serial / Lot Left Foot Surgery ([place]) Left: Foot Procedures Procedure Name Priority Date/Time [...] 8:38 AM CDT Essential hypertension Pure hypercholesterole inkolas Abnormal glucose COMPREHENSIVE METABOLIC PANEL Routine 11/25/2024 [...] CDT Urethral pain COLONOSCOPY 08/12/2024 12:07 PM SOLARIS ADMINISTRATOR SCREENING MAMMOGRAM BILATERAL W ARTUR Schedule Routine, [...] O RDERABLES Final Result Performing Organization Address City/[facility]/ZIP Co de Phone Number [facility] [address] [place] [address] * Thyroid Function [place] (11/25/2024 8:38 AM CDT) Pathologist [facility] TSH 2.23 0.40 - 4.50 mIU/L [facility] [place] Blood 11/25/2024 8:38 AM CDT 11/25/2024 8:41 AM CDT Narrative [facility] - 11/26/2024 7:01 AM CDT FASTING:YES FASTING: YES Jinny Sam MD LAB BLOOD ORDERABLES Final R esult Performing Organization Address City/[facility]/ZIP Co de Phone Number [facility] [place] [place] [address] [place] [address] * Urinalysis reflex to microscopic and culture Urine, clean voided (11/25/2024 8:38 AM CDT) Color, ur YELLOW YELLOW [facility] Appearance, ur CLEAR CLEAR [facility] Specific gravity 1.009 1.001 - 1.035 [facility] pH, ur < OR = 5.0 5.0 - 8.0 [facility] Glucose, ur NEGATIVE NEGATIVE [facility] Bilirubin, ur NEGATIVE NEGATIVE [facility] Ketones, ur NEGATIVE NEGATIVE [facility] Blood, ur NEGATIVE NEGATIVE [facility] Protein, ur, quant NEGATIVE NEGATIVE [facility] Nitrites, ur NEGATIVE NEGATIVE [facility] Leukocyte esterase, ur NEGATIVE NEGATIVE [facility] WBC, ur NONE SEEN < OR = 5 /HPF [facility] RBC, ur NONE SEEN < OR = 2 /HPF [facility] Epithelial cells, squamous, ur NONE SEEN < OR = 5 /HPF [facility] Bacteria, ur, quant NONE SEEN NONE SEEN /HPF [facility] Hyaline cast NONE SEEN NONE SEEN /LPF [facility] Note [facility] Comment: This urine was analyzed for the presence of WBC, RBC, bacteria, casts, and other formed elements. Only those elements seen were reported. Urine, clean voided 11/25/2024 8:38 AM CDT 11/25/2024 8:41 AM CDT Narrative [facility] - 11/26/2024 7:01 AM CDT FASTING:YES FASTING: YES us Jinny Sam MD LAB MICROBIOLOGY - GENERAL O RDERABLES Final Result [facility] [address] [place] [address] * (ABNORMAL) CBC with auto differential (11/25/2024 8:38 AM CDT) WBC 11.1(H) 3.8 - 10.8 Thousand/u L [facility] RBC, POC 4.46 3.80 - 5.10 Million/uL [facility] Hgb 13.5 11.7 - 15.5 g/dL [facility] [...] LAB BLOOD ORDERABLES Final R esult [facility] [address] [place] [address] * Albumin Creatinine Ratio, Urine (11/25/2024 8:38 [...] ORDERABLES Final R esult Performing Organization Address City/[facility] Co de Phone Number [employer] [facility] [address] [place] [address] * Hemoglobin A1c (11/25/2024 8:38 AM CDT) Hgb A1C 5.5 <5.7 % of total Hgb [facility] Comment: For the purpose of screening for the presence of diabetes: <5.7% Consistent with the absence of diabetes 5.7-6.4% Consistent with increased risk for diabetes (prediabetes) > or =6.5% Consistent with diabetes This assay result is consistent with a decreased risk of diabetes. Currently, no consensus exists regarding use of hemoglobin A1c for diagnosis of diabetes in children. According to [place] Diabetes Association (ADA) guidelines, hemoglobin A1c <7.0% represents optimal control in non- diabetic patients. Different metrics may apply to specific patient populations. Standards of Medical Care in Diabetes(ADA). Blood 11/25/2024 8:38 AM CDT 11/25/2024 8:41 AM CDT Narrative [facility] - 11/26/2024 7:01 AM CDT FASTING:YES FASTING: YES Jinny Sam MD LAB BLOOD ORDERABLES Final R esult Performing Organization Address City/[facility] Co de Phone Number [facility] [place] [address] [place] [address] * (ABNORMAL) Lipid panel (11/25/2024 8:38 AM CDT) Cholesterol 228(H) <200 mg/dL [facility] HDL 53 > OR = 50 mg/dL [facility] Triglycerides 226(H) <150 mg/dL SK[facility] Comment: If a non-fasting specimen was [...] LDL-C. Emilio SS et al. FRANKIE. 2013;310(19): 9172-2194 (http://education.[employer]/faq/NGV397) Chol/HDL ratio 4.3 <5.0 (calc) [facility] Non-HDL, (LDL+VLDL) 175(H) <130 mg/dL (calc) SK[facility] Comment: For patients with diabetes plus 1 major ASCVD risk factor, treating to a non-HDL-C goal of <100 mg/dL (LDL-C of <70 mg/dL) is considered a therapeutic option. Blood 11/25/2024 8:38 AM CDT 11/25/2024 8:41 AM CDT Narrative [facility] - 11/26/2024 7:01 AM CDT FASTING:YES FASTING: YES us Jinny Sam MD LAB BLOOD ORDERABLES Final R esult [facility] [place] [address] [place] [address] * (ABNORMAL) Comprehensive metabolic panel (11/25/2024 8:38 AM CDT) [facility] Glucose 109(H) 65 - 99 mg/dL Darling Touch[facility]a [facility]mer Comment: Fasting reference interval For someone [...] ORDERABLES Final R esult [facility] [address] [place] [address] * Urinalysis reflex to microscopic and culture Urine, clean voided (11/23/2024 3:52 PM CDT) Color, ur Straw Yellow Comment:Testing performed by : [address] [address] Clarity, ur Clear Clear SHANIKA Comment:Testing performed by : [address], [place]., [address] Specific gravity, ur 1.005 1.003 - 1.030 SHANIKA Comment:Testing performed by : [address], [place]., [address] pH, urine 6.5 SHANIKA Comment: Interpretive Data U rine pH is affected by diet, medications, systemic acid-base disturbances, and renal tubular function. pH may affect urinary stone formation. For example, urine pH below 6.0 may help reduce the tendency for calcium phosphate stones and pH greater than 6.0 may reduce the tendency for uric acid stone formation. Source: [facility] [employer] Current Interpretive Data was last revised on 2017 Testing performed by: [address] [address] Protein, ur ql Negative Negative SHANIKA Comment:Testing performed by : [address] [address] Glucose, ur ql Negative Negative SHANIKA Comment:Testing performed by : [address] [address] Ketones, ur Negative Negative SHANIKA Comment:Testing performed by : [address] [address] Bilirubin, ur Negative Negative SHANIKA Comment:Testing performed by : [address] [address] Blood, ur Negative Negative SHANIKA Comment:Testing performed by : [address] [address] Urobilinogen, ur <2.0 <2.0 mg/dL SHANIKA Comment:Testing performed by : [address] [address] Nitrite, ur Negative Negative SHANIKA Comment:Testing performed by : [address] [address] Leukocyte esterase, ur Negative Negative SHANIKA Comment:Testing performed by : [address], [place]., [address] UA reflex comment Reflex conditions for microscopic UA and culture not met. SHANIKA Comment:Testing performed by : [facility], [address] [place] [address]., [address] Urine, clean voided 11/23/2024 3:52 PM CDT 11/23/2024 6:53 PM CDT Narrative SHANIKA - 11/23/2024 7:00 PM CDT Urine Collection Method->Clean Catch us Jinny Sam MD LAB MICROBIOLOGY - GENERAL O RDERABLES Final Result SHANIKA [address] [facility] Department [place] [address] * Colonoscopy (08/12/2024 12:07 PM SOLARIS ADMINISTRATOR) Anatomical Region Laterality Modality Other Narrative Procedure Note Mat Benjamin MD - 08/12/2024 12:07 PM CST [facility] Patient Name: Samara Bethea Procedure Date: 08/12/2024 12:07 PM Date of : 1960 Admit Type: Outpatient Age: 63 Gender: Female Attending MD: Mat Benjamin MD Room: [facility] RO[facility] 04 Note Status: Finalized Procedure: [...] The scope was passed under direct vision.The CF-[id number] colonoscope was introduced through theanus and advanced [...] On: 08/12/2024 12:07 PM Recognized by the [place] [employer] for Gastrointestinal [employer]oscopy for promoting quality [...] compared to prior imaging studies performed at [facility] on 07/12/2021, 07/29/2021 and 12/01/2022. [...] compared to prior imaging studies performed at [facility] on 07/12/2021, 07/29/2021 and 12/01/2022. [...] Relevant to [place] [address] [facility] BL CHOICE PR[place] Care Teams Personal Clothing Laundry Aide Relationship Specialty Start Date End Date Jinny Sam MD [address] [facility] [address] [place] [address] PCP - General Internal Medicine 11/16/19 Yanet Westfall MD Consulting Physician Pulmonary Disease 04/18/19 Alma Francisco MD 3 [facility] [address] [place] [address] Referring Physician Cardiology 04/18/19 Jacquelin Holden MD [facility] [address] [facility] [address] [place] [address] Surgeon Surgical Oncology 04/18/19 Horace Zapien MD [address] [facility] [place] [address] Referring Physician Dermatology 04/18/19
--- OUTSIDE RECORDS SUMMARY | 2024-12-27 21:53 | XMS_ITS | Encounter Summary ---
Author Organization [facility] Facility Care Team Providers Care Insight Director Name Role Phone Jinny Sam MD Primary Care Provider [phone] Yanet Westfall MD Unavailable [phone] Alma Francisco MD Unavailable [phone] Jacquelin Holden MD Unavailable [phone] Horace Zapien MD Unavailable [phone] Jenny Gary NP Primary Care Provider [phone] Yoel Villatoro Primary Care Provider [phone] Jinny Sam MD Primary Care Provider [phone] Encounter Details Date Type Department Care Team (Latest Contact Info) Description 07/19/2018 Orders Only [facility] CLINCONV ProviderJaye MD [address] [place] [address] Social History Tobacco Use Types Packs/Day Years Used Date Smoking Tobacco: Never Assessed Comments Unknown Sex and Gender Information Value Date Recorded Sex Assigned at Not on file Legal Sex Female 11:22 PM NET MVC DEVELOPER Gender Identity Female 07/22/2018 2:36 PM NET MVC DEVELOPER Sexual Orientation Not on file documented as of this encounter Plan of Treatment Not on file documented as of this encounter Procedures Procedure Name Priority Date/Time Associated Diagnosis Comments SCAN - PATHOLOGY 08/06/2018 12:0 0 AM NET MVC DEVELOPER documented in this encounter Results * SCAN - PATHOLOGY (08/06/2018 12:00 AM NET MVC DEVELOPER) Narrative 08/06/2018 12:00 AM NET MVC DEVELOPER Ordered by an unspecified provider. us Historical [...] COVID: Suspected 07/14/2022 07/14/2022 07/14/2022 10:25 PM NET MVC DEVELOPER RSV, droplet 07/14/2022 07/14/2022 07/21/2022 3:05 AM NET MVC DEVELOPER documented as of this encounter Care Teams Insight Director Relationship Specialty Start Date End Date Jinny Sam MD [address] [place] [id number] PCP - General Internal Medicine 07/22/18 08/30/19 Jenny Gary NP [address] [facility] [place] [address] PCP - General 08/31/19 11/13/19 Yoel Villatoro PA [address] [place] [address] PCP - General Internal Medicine 11/14/19 11/15/19 Jinny Sam MD [address] [address] PCP - General Internal Medicine 11/16/19 Yanet Westfall MD [address] [place] [address] Consulting Physician Pulmonary Disease 04/18/19 Alma Francisco MD [address] [place] [place] [address] Referring Physician Cardiology 04/18/19 Jacquelin Hloden MD [address] [facility] [address] [place] [address] Surgeon Surgical Oncology 04/18/19 Horace Zapien MD [address] [facility] [address] Referring Physician Dermatology 04/18/19 documented as of this encounter
--- OUTSIDE RECORDS SUMMARY | 2024-12-27 21:53 | XMS_ITS | Encounter Summary ---
Author Organization [facility] Healthcare Address [address] [place] [address] Care Team Providers Care Damper Worker Name Role Phone Yanet Westfall MD Unavailable [phone] Alma Francisco MD Unavailable [phone] Jacquelin Holden MD Unavailable [phone] Horace Zapien MD Unavailable [phone] Jinny Sam MD Primary Care Provider [phone] Encounter Details Date Type Department Care Team (Latest Contact Info) Description 11/27/2024 Results Follow-Up [facility] Primary Care [address] [place] [phone] Jinny Sam MD [address] [place] [phone] CBC with auto differential, Comprehensive metabolic [...] on file Legal Sex Female 11:22 PM REHAB TECHNICIAN Gender Identity Female 07/22/2018 2:36 PM REHAB TECHNICIAN Sexual Orientation Not on file 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 on 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 Not on file 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 on 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 on file Not on file Not [...] on filedocumented in this encounter Care Teams Damper Worker Relationship Specialty Start Date End Date Jinny Sam MD [address] [place] [phone] PCP - General Internal Medicine 11/16/19 Yanet Westfall MD Consulting Physician Pulmonary Disease 04/18/19 Alma Francisco MD [address] [facility] [address] [place] [address] Referring Physician Cardiology 04/18/19 Jacquelin Holden MD [facility] [address] [id number] Surgeon Surgical Oncology 04/18/19 Horace Zapien MD [address] [place] [address] Referring Physician Dermatology 04/18/19 documented as of this encounter
--- NOTE | 2024-12-27 22:02 | ED.ABDPAIN ---
HPI - Abdominal Pain General Chief Complaint: Abdominal Pain Stated Complaint: RLQ pain Time Seen by Provider: 12/27/24 21:21 History of Present Illness HPI narrative: 64-year-old female with reported history of hypertension, hyperlipidemia, DM presents emergency department for right lower quadrant abdominal/suprapubic pain that started at 4:00 p.m. today. Patient states the pain started out of the blue, is worse with movement of her right leg. Reports associated nausea, no vomiting. Denies fevers, dysuria, hematuria. Has had some urinary frequency and diarrhea for several months that is unchanged. Last bowel movement was prior to arrival and normal. Reports prior history of cholecystectomy, no other abdominal surgeries. Related Data Allergies Allergy/AdvReac Type Severity Reaction Status Date / Time No Known Allergies Allergy Verified 12/27/24 19:24 Review of Systems Review of Systems: All systems reviewed & are unremarkable except as noted in HPI and below PMFSH Family History Family History Other Family history of Parkinson's disease Hypertension Social History Social History Alcohol intake: current Exam Narrative: GENERAL: Appears uncomfortable, otherwise NAD HEAD: Normocephalic, atraumatic. EYES: EOMI. ENT: Nares clear, no rhinorrhea or epistaxis. Mucous membranes moist. NECK: Supple. CHEST: Clear to auscultation. No respiratory distress. HEART: Regular rate and rhythm. No murmur heard. Normal peripheral pulses. ABDOMEN: Normoactive bowel sounds. Abdomen soft with tenderness in the right lower quadrant/suprapubic region/groin. No rebound or rigidity. No guarding. Negative Rovsing's. Positive psoas sign. No CVA tenderness EXTREMITIES: Normal range of motion, no edema. Right DP pulse 2+, negative Homans, extremity pink, warm and dry SKIN: Warm, dry, no rash. NEURO: No focal deficits. Alert and oriented x4. Cranial nerves 2-12 intact. Strength 5/5 in BUE and BLE. Sensation intact throughout. No ataxia, no dysarthria Course Vital Signs Vital signs: Vital Signs Temperature 97.9 F 12/27/24 19:19 Pulse Rate 83 12/27/24 19:19 Respiratory Rate 20 12/27/24 19:19 Blood Pressure 154/83 H 12/27/24 19:19 Pulse Oximetry 97 12/27/24 19:19 Oxygen Delivery Room Air 12/27/24 19:19 Temperature 97.9 F 12/27/24 19:19 Pulse Rate 83 12/27/24 19:19 Respiratory Rate 20 12/27/24 19:19 Blood Pressure 154/83 H 12/27/24 19:19 Pulse Oximetry 97 12/27/24 19:19 Oxygen Delivery Room Air 12/27/24 19:19 MDM - Abdominal Pain MDM Narrative Medical decision making narrative: 64-year-old female presents emergency department for right lower quadrant abdominal pain/suprapubic pain and nausea that started at 4:00 p.m. today. Triage vitals with elevated blood pressure, otherwise unremarkable. Patient is afebrile and nontoxic appearing. Exam is significant for the above. CBC without leukocytosis or anemia. Chemistries with mildly elevated creatinine of 1.03, otherwise unremarkable. Lipase within normal limits. UA with 11-20 white blood cells, trace leuk esterase and 1+ bacteria, no rbc's. Lactic acid within normal limits. CT abd/pelvis shows: IMPRESSION: Esophagitis/gastritis. Hepatic steatosis. Mild sigmoid wall edema, may reflect a component of colitis. Cystitis versus bladder wall thickening from incomplete distention. Correlate with urinalysis. Prominent left pelvic veins, as can be seen with pelvic congestion. Correlate clinically for persistent dull pelvic pain lasting > 6 months, dysmenorrhea, dyspareunia, postcoital ache, and urinary symptoms. Patient updated on results. I offered morphine and Zofran for symptoms however patient declined and is only wanting Tylenol. On re-evaluation she is now complaining of a posterior headache. She states she believes is due to stress. She is neurologically intact. I offered further treatment of his headaches such as headache cocktail, IV fluids and magnesium however patient politely declined states she would like to see if the Tylenol helps. Additionally, will obtain pelvic ultrasound for further evaluation of her right lower quadrant abdominal pain. Pelvic ultrasound shows IMPRESSION: Endometrial thickening to 8 mm. Recommend referral for endometrial sampling. No sonographic findings to suggest ovarian torsion. Patient re-evaluated and updated on results. She reports improvement in both her abdominal pain and headache. Uncertain what her source of abdominal pain is. Discussed may be due to UTI vs MSK vs pelvic congestion syndrome vs other. Will start her on antibiotics for UTI as this may be source of pain. I advised her to follow-up closely with her PCP and cloud consultant regarding findings today. Discussed strict ED return precautions. She is agreeable with the plan verbalized understanding. Discharged in stable condition. Lab Data 12/27/24 20:10 12/27/24 20:10 Labs: Lab Results 12/27/24 12/27/24 Range/Units 20:10 22:23 WBC 8.4 (4.5-10.0) K/mm3 RBC 4.12 L (4.2-5.4) M/mm3 Hgb 12.1 (12.0-15.0) g/dL Hct 36.5 L (37.0-47.0) % MCV 88.6 (80-100) fl MCH 29.4 (26-34) pg MCHC 33.2 (32-36) g/dl RDW 12.4 (11.5-14.5) % Plt Count 261 (150-375) k/mm3 MPV 9.9 (7.4-10.4) fl Immature Gran % (Auto) 0.4 (0-0.5) % Neut % (Auto) 63.5 (45.5-73.1) % Lymph % (Auto) 25.3 (18.3-44.2) % Baldwin % (Auto) 7.6 (2.6-8.5) % Eos % (Auto) 2.6 (0-4.4) % Baso % (Auto) 0.6 (0.2-1.2) % Lymph # (Auto) 2.13 (0.9-3.2) K/mm3 Baldwin # (Auto) 0.6 (0.1-0.6) K/mm3 Eos # (Auto) 0.2 (0-0.3) K/mm3 Baso # (Auto) 0.1 (0.0-0.1) K/mm3 Abs Immat Gran (auto) 0.03 (0.00-0.031) K/mm3 Absolute Neuts (auto) 5.4 (1.3-6.7) K/mm3 Absolute Nucleated RBC 0.000 (0.0-0.012) K/mm3 Nucleated RBC % 0.0 (0.0-0.2) % Sodium 139 (137-145) mmol/L Potassium 4.1 (3.4-5.0) mmol/L Chloride 106 (98-107) mmol/L Carbon Dioxide 25 (22-30) mmol/L Anion Gap 8 (4-12) mmol/L BUN 16 (7-17) mg/dL Creatinine 1.03 H (0.7-1.0) mg/dL Estim Creat Clear Calc 55 ml/min Estimated GFR 54 L (59 - ) Glucose 118 H (65-110) mg/dL Lactic Acid 1.1 (0.7-2.0) mmol/L Calcium 9.7 (8.4-10.2) mg/dL Total Bilirubin 0.6 (0.2-1.3) mg/dL AST 36 (14-36) U/L ALT 29 (6-35) U/L Alkaline Phosphatase 106 (38-126) U/L Total Protein 8.0 (6.3-8.2) g/dL Albumin 4.7 (3.5-5.1) g/dL Lipase 243 (23-300) U/L Urine Color Yellow (Yellow) Urine Appearance Clear (Clear) Urine pH 6.0 (5.0-9.0) Ur Specific [place] 1.013 (1.001-1.035) Urine Protein Negative (Negative) mg/dL Urine Glucose (UA) Negative (Negative) mg/dL Urine Ketones Negative (Negative) mg/dL Ur Blood (Man) Negative (Negative) Urine Nitrate Negative (Negative) Urine Bilirubin Negative (Negative) Urine Urobilinogen 0.2 (<2.0) mg/dL Leukocyte Esterase Rfl Trace H (Negative) LUCIANA/UL Urine RBC 0-2 (0-2) /hpf Urine WBC 11-20 H (0-3) /hpf Ur Squamous Epith Cells Occasional (Few) /hpf Urine Bacteria 1+ H /hpf Urine Casts 0-2 Imaging Data Radiologist's impression: ITS Impressions Abdomen/Pelvis CT 12/27/24 23:00 IMPRESSION: Esophagitis/gastritis. Hepatic steatosis. Mild sigmoid wall edema, may reflect a component of colitis. Cystitis versus bladder wall thickening from incomplete distention. Correlate with urinalysis. Prominent left pelvic veins, as can be seen with pelvic congestion. Correlate clinically for persistent dull pelvic pain lasting > 6 months, dysmenorrhea, dyspareunia, postcoital ache, and urinary symptoms. Pelvis Ultrasound 12/27/24 23:59 IMPRESSION: Endometrial thickening to 8 mm. Recommend referral for endometrial sampling. No sonographic findings to suggest ovarian torsion. Discharge Plan Discharge Clinical Impression: Abdominal pain, right lower quadrant, Thickened endometrium, Hepatic steatosis, Pelvic congestion UTI (urinary tract infection) Qualifiers: Urinary tract infection type: acute cystitis Hematuria presence: without hematuria Qualified Code(s): N30.00 - Acute cystitis without hematuria Patient Disposition: Home Condition: Stable Instructions: Antibiotic Form, Urinary Tract Infection in Women (DC), Abdominal Pain (ED) Additional Instructions: You were evaluated in the emergency department for right lower quadrant abdominal pain. Your found have a urinary tract infection, please take the antibiotics as directed. Incidentally your found to have a thickened endometrium, please follow-up with her cloud consultant as these may need tissue sampling. Also follow-up with her cloud consultant regarding concern for possible pelvic congestion syndrome. The CT scan showed findings concerning for fatty liver disease and esophagitis/gastritis. Please follow-up with your primary care provider regarding this. Take Tylenol as needed for pain as directed [id number]. Return to the emergency department if you develop fever, abdominal pain, new or worsening symptoms. Patient Language: Luxembourgish Prescriptions: New cephalexin 500 mg capsule 500 mg PO Q6H Qty: 28 0RF No Action sodium,potassium,mag sulfates [Suprep Bowel Prep Kit] 17.5-3.13-1.6 gram recon soln See Rx Instructions PO .COMPLEX Qty: 354 0RF Rx Instructions: TAKE DIRECTED sodium,potassium,mag sulfates [Suprep Bowel Prep Kit] 17.5-3.13-1.6 gram recon soln See Rx Instructions PO .COMPLEX Qty: 354 0RF Rx Instructions: TAKE DIRECTED Follow-up/Referrals: Cecy,Jinny Sanchez MD [Primary Care Provider] -
[2024-12-27 22:34] LABS: Add Urine Microscopic? YES; Appearance Urine Clear (Clear); Bacteria Urine 1+ /hpf; Bilirubin Urine Negative (Negative); Blood Urine Negative (Negative); Color Urine Yellow (Yellow); Glucose Urine UA Negative (Negative); Ketones Urine Negative (Negative); Leukocyte Esterase Ur Trace LEU/UL (Negative); Nitrate Urine Negative (Negative); Non Pathogenic Casts 0-2; Protein Urine Negative (Negative); RBC Urine 0-2 /hpf (0-2); Specific Grav Ur 1.013 (1.001-1.035); Squamous Epithelial Cell Urine Occasional /hpf (Few); Urobilinogen Urine 0.2 mg/dL (<2.0)
[2024-12-27 22:38] LABS: Lactic Acid Reflex 1.1 mmol/L (0.7-2.0)
[2024-12-27] MEDS: ACETAMINOPHEN 500 MG TABLET 1000 MG PO (23:11)
[2024-12-27 23:42] VITALS: BP 147/82; PULSE 81; RESP 22; O2SAT 99
[2024-12-28] MEDS: CEPHALEXIN 500 MG CAPSULE PO (00:53)
[2024-12-28 01:10] VITALS: BP 143/76; PULSE 76; RESP 17; TEMP 36.7; O2SAT 99
[2024-12-28 01:11] VITALS: BP 143/76; PULSE 76; RESP 17; TEMP 36.7; O2SAT 99
== END 2024-12-28 01:13 | disposition home or self-care (01) ==
PROVIDERS: Emergency Medicine; Emergency Provider Physician Assistant; PCP Internal Medicine
DX: N30.00 Acute cystitis without hematuria (principal); R93.89 Abnormal findings on diagnostic imaging of other specified body structures; N94.89 Other specified conditions associated with female genital organs and menstrual cycle; K76.0 Fatty (change of) liver, not elsewhere classified; E78.5 Hyperlipidemia, unspecified; I10 Essential (primary) hypertension; E11.9 Type 2 diabetes mellitus without complications; K20.90 Esophagitis, unspecified without bleeding; K29.70 Gastritis, unspecified, without bleeding
CPT/HCPCS: 36415; 74177; 76856; 80053; 81001; 83605; 83690; 85025; 87077; 87086; 87186; 99284; A9270; Q9967